=== PATIENT | female | born 1930 | race Caucasian/White ===

== ENCOUNTER 2019-02-10 20:45 | Inpatient (IN) | payer MEDICARE ==
[~2019-02-10] VITALS: Ht 149.9 cm; Wt 93.6 kg
[2019-02-10 21:37] LABS: BASO # 0.1 x10^3/uL (0.0-0.2); BASO % 1 % (0-3); EOS # 0.2 x10^3/uL (0.0-0.7); EOS % 3 % (0-3); HEMATOCRIT 38.4 % (36.0-47.0); HEMOGLOBIN 12.5 g/dL (12.0-15.5); LYMPH # 2.8 x10^3/uL (1.0-4.8); LYMPH % 29 % (24-48); MEAN CORPUSCULAR HEMOGLOBIN 29 pg (25-35); MEAN CORPUSCULAR HGB CONC 32 g/dL (31-37); MEAN CORPUSCULAR VOLUME 90 fL (79-100); MONO # 0.8 x10^3/uL (0.0-1.1); MONO % 9 % (0-9); NEUT # 5.8 x10^3uL (1.8-7.7); NEUT % 60 % (31-73); PLATELET COUNT 233 x10^3/uL (140-400); RED BLOOD COUNT 4.29 x10^6/uL (3.50-5.40); RED CELL DISTRIBUTION WIDTH 16.2 % (11.5-14.5); WHITE BLOOD COUNT 9.7 x10^3/uL (4.0-11.0)
--- NOTE | 2019-02-10 21:41 | PHYS DOC ---
Past Medical History Past Medical History: Diabetes-Type II, High Cholesterol, Heart Disease, Hypertension Past Surgical History: Coronary Bypass Surgery, Other Additional Past Surgical Histo: SHOULDER,BACK, CARPAL TUNNEL Alcohol Use: None Drug Use: None Adult General Chief Complaint Chief Complaint: RAPID HEART RATE HPI HPI Patient is a 88 year old female with a history of CAD who presents with palpitations. Patient states she's been having palpitations intermittently for the past three weeks. The palpitations usually occur with exertion. Resting seems to reliever her palpitations. In addition, she is also experiencing some exertional dyspnea and orthopnea. She denies any chest pain, light headedness, or dizziness. Review of Systems Review of Systems Constitutional: Denies fever or chills Eyes: Denies vision changes or eye pain HENT: Denies nasal congestion or sore throat Respiratory: Reports exertional shortness of breath. Denies hemoptysis. Cardiovascular: Reports palpitations, denies chest pain. GI: Denies abdominal pain, nausea, vomiting : Denies dysuria or hematuria Musculoskeletal: Reports bilateral leg swelling. Denies back pain or joint pain Integument: Denies rash or skin lesions Neurologic: Denies headache or focal weakness Complete systems were reviewed and found to be within normal limits, except as documented in this note. Current Medications Current Medications Current Medications Medications (Trade) Dose Ordered Sig/Cindi Start Time Stop Time Status Last Admin Dose Admin Aspirin (Jovanny Aspirin) 325 mg 1X ONCE 02/10/19 22:00 02/10/19 22:01 DC 02/10/19 21:41 325 MG Allergies Allergies Allergies Coded Allergies Type Severity Reaction Last Updated Verified codeine Allergy Intermediate 02/10/19 Yes Physical Exam Physical Exam Constitutional: No acute distress, non-toxic appearance. HENT: Normocephalic, atraumatic, oropharynx moist Eyes: EOMI, no discharge. Neck: Normal range of motion, no tenderness. Cardiovascular: Irregulary irregular rhythm, no murmur Lungs & Thorax: Crackles in right lung base, no wheezes Abdomen: Soft, no tenderness Skin: Warm, dry, 2+ pedal edema bilaterally. Back: No tenderness, no CVA tenderness. Extremities: No cyanosis, 2+ pedal edema bilaterally. Neurologic: Alert and oriented X 3, normal motor function, no focal deficits noted. Psychologic: Affect normal, mood normal. Current Patient Data Vital Signs Vital Signs Date Time Temp Pulse Resp B/P (MAP) Pulse Ox O2 Delivery O2 Flow Rate FiO2 02/10/19 22:12 78 154/119 (131) 95 Room Air 02/10/19 20:50 98.2 22 98.2 Lab Values Laboratory Tests Test 02/10/19 21:02 02/10/19 21:50 White Blood Count 9.7 x10^3/uL (4.0-11.0) Red Blood Count 4.29 x10^6/uL (3.50-5.40) Hemoglobin 12.5 g/dL (12.0-15.5) Hematocrit 38.4 % (36.0-47.0) Mean Corpuscular Volume 90 fL (79-100) Mean Corpuscular Hemoglobin 29 pg (25-35) Mean Corpuscular Hemoglobin Concent 32 g/dL (31-37) Red Cell Distribution Width 16.2 % (11.5-14.5) H Platelet Count 233 x10^3/uL (140-400) Neutrophils (%) (Auto) 60 % (31-73) Lymphocytes (%) (Auto) 29 % (24-48) Monocytes (%) (Auto) 9 % (0-9) Eosinophils (%) (Auto) 3 % (0-3) Basophils (%) (Auto) 1 % (0-3) Neutrophils # (Auto) 5.8 x10^3uL (1.8-7.7) Lymphocytes # (Auto) 2.8 x10^3/uL (1.0-4.8) Monocytes # (Auto) 0.8 x10^3/uL (0.0-1.1) Eosinophils # (Auto) 0.2 x10^3/uL (0.0-0.7) Basophils # (Auto) 0.1 x10^3/uL (0.0-0.2) Prothrombin Time 13.5 SEC (11.7-14.0) Prothrombin Time INR 1.1 (0.8-1.1) PTT 37 SEC (24-38) Sodium Level 140 mmol/L (136-145) Potassium Level 4.0 mmol/L (3.5-5.1) Chloride Level 105 mmol/L (98-107) Carbon Dioxide Level 25 mmol/L (21-32) Anion Gap 10 (6-14) Blood Urea Nitrogen 22 mg/dL (7-20) H Creatinine 0.8 mg/dL (0.6-1.0) Estimated GFR (Cockcroft-Gault) 67.5 BUN/Creatinine Ratio 28 (6-20) H Glucose Level 109 mg/dL (70-99) H Calcium Level 9.3 mg/dL (8.5-10.1) Magnesium Level 2.0 mg/dL (1.8-2.4) Total Bilirubin 0.3 mg/dL (0.2-1.0) Aspartate Amino Transferase (AST) 19 U/L (15-37) Alanine Aminotransferase (ALT) 26 U/L (14-59) Alkaline Phosphatase 89 U/L (46-116) Creatine Kinase 72 U/L (26-192) Creatine Kinase MB (Mass) 1.3 ng/mL (0.0-3.6) Creatine Kinase MB Relative Index % (0-4) Troponin I Quantitative < 0.017 ng/mL (0.000-0.055) LR-Ajg-O-Type Natriuretic Peptide 1462 pg/mL (0-449) H Total Protein 7.4 g/dL (6.4-8.2) Albumin 3.3 g/dL (3.4-5.0) L Albumin/Globulin Ratio 0.8 (1.0-1.7) L Lipase 101 U/L (73-393) Urine Collection Type Unknown Urine Color Yellow Urine Clarity Clear Urine pH 5.0 Urine Specific [place] 1.025 Urine Protein Negative mg/dL (NEG-TRACE) Urine Glucose (UA) Negative mg/dL (NEG) Urine Ketones (Stick) Negative mg/dL (NEG) Urine Blood Negative (NEG) Urine Nitrite Negative (NEG) Urine Bilirubin Negative (NEG) Urine Urobilinogen Dipstick 0.2 mg/dL (0.2 mg/dL) Urine Leukocyte Esterase Trace (NEG) Urine RBC Occ /HPF (0-2) Urine WBC 1-4 /HPF (0-4) Urine Squamous Epithelial Cells Few /LPF Urine Bacteria 0 /HPF (0-FEW) Urine Hyaline Casts Few /HPF Urine Mucus Mod /LPF Laboratory Tests 02/10/19 21:02 Laboratory Tests 02/10/19 21:02 EKG EKG @2100 Afib at 78bpm, NO ST elevation] Radiology/Procedures Radiology/Procedures CXR Initially read by ER physician demonstrated increased vascular congestion bilaterally concerning for CHF Course & Med Decision Making Course & Med Decision Making 88 year old female presents to the emergency department for abnormal heart beat. Patient has a history of CAD and quadruple bypass in 2008. In addition to her chest pain she also experiencing orthopnea and exertional dyspnea. On arrival patient was in a-fib with a rate in the 80s. Labs and Imaging were obtained and posted to chart. BNP was elevated. Lasix given. CXR demonstrate fluid on lungs bilaterally. Troponin negative. Symptomatic treatment provided with interval improvement. Due to new onset a-fib and concerns for new onset CHF patient would benefit from an admissions. Discussed with Dr. Linda (hospitalist) who is in agreement with admission. Findings were discussed with patient and family who acknowledge understanding and are in agreement with plan. Dragon Disclaimer Dragon Disclaimer This electronic medical record was generated, in whole or in part, using a voice recognition dictation system. Departure Departure Impression: Primary Impression: Acute CHF Additional Impression: Atrial fibrillation Disposition: ADMITTED INPATIENT Admitting Physician: Other (Dr. Linda) Condition: GUARDED Referrals: ALEX COURTNEY MD (PCP) Problem Qualifiers Primary Impression: Acute CHF Heart failure type: unspecified Qualified Codes: I50.9 - Heart failure, unspecified Additional Impression: Atrial fibrillation Atrial fibrillation type: unspecified Qualified Codes: I48.91 - Unspecified atrial fibrillation ELIZABETH ACOSTA DO Feb 10, 2019 21:41
[2019-02-10 21:46] LABS: CALCIUM 9.3 mg/dL (8.5-10.1); CREATININE 0.8 mg/dL (0.6-1.0); GFR 67.5
[2019-02-10 21:50] LABS: PROTHROMBIN TIME PATIENT 13.5 SEC (11.7-14.0)
[2019-02-10 21:52] LABS: ALBUMIN 3.3 g/dL (3.4-5.0); ALBUMIN/GLOBULIN RATIO 0.8 (1.0-1.7); TOTAL BILIRUBIN 0.3 mg/dL (0.2-1.0); TOTAL PROTEIN 7.4 g/dL (6.4-8.2)
[2019-02-10 21:59] LABS: CREATINE KINASE 72 U/L (26-192)
[2019-02-10] MEDS ORDERED: ASPIRIN 325 MG TABLET PO ONE (22:00)
[2019-02-10 22:08] LABS: BILIRUBIN,URINE NEGATIVE (NEG); CLARITY,URINE CLEAR; COLOR,URINE YELLOW; NITRITE,URINE NEGATIVE (NEG); PROTEIN,URINE NEGATIVE (NEG-TRACE); UROBILINOGEN,URINE 0.2 mg/dL (0.2 mg/dL)
[2019-02-10 22:15] LABS: BACTERIA,URINE 0 /HPF (0-FEW); HYALINE CASTS, URINE FEW /HPF; RBC,URINE OCC /HPF (0-2); SQUAMOUS EPITHELIAL CELL,UR FEW /LPF
[2019-02-10] MEDS ORDERED: DEXTROSE 50% 25 GM / 50ML DISP.SYRIN. IV PRN (23:00)
[2019-02-10] MEDS ORDERED: FUROSEMIDE 40 MG/4 ML VIAL. IVP ONE (23:00)
[2019-02-10] MEDS ORDERED: ONDANSETRON PF 4 MG/2 ML VIAL. IV PRN (23:00)
[2019-02-11] VITALS (7 sets, daily range): BP systolic 108–163; BP diastolic 42–75
[2019-02-11] MEDS ORDERED: SIMV10TA3 PO (01:39)
[2019-02-11] MEDS ORDERED: INSU100I13 SQ (02:05)
[2019-02-11] MEDS ORDERED: LISI-334 PO (02:05)
[2019-02-11] MEDS ORDERED: ASPI-630 PO (02:05)
[2019-02-11] MEDS ORDERED: INSU100I11 SQ (02:05)
[2019-02-11] MEDS ORDERED: METO25TA2 PO (02:05)
--- NOTE | 2019-02-11 02:07 | NUR ---
Patient arrived to floor at approx 0109 accompanied by family and ER nurse. VS stable, assessment complete, resting comfortably on RA. Valuables checked. Orientated patient to unit. Call light with in reach, bed in low, locked position.
--- NOTE | 2019-02-11 06:50 | EKG ---
[facility] [address] [place] [address] Test Date: 2019-02-10 Test Time: 21:00:41 Pat Name: JULIO PERKINS Department: Room: 258 1 Gender: F [employer]: : 1930 Requested By: ELIZABETH ACOSTA Order Number: [id number] Reading MD: Jassi Shannon Measurements Intervals [place] Rate: 78 P: DE: QRS: -30 QRSD: 82 T: 34 QT: 360 QTc: 414 Interpretive Statements ATRIAL FIBRILLATION/FLUTTER ABNORMAL LEFT AXIS DEVIATION ST & T ABNORMALITY, CONSIDER HIGH LATERAL ISCHEMIA OR LEFT VENTRICULAR STRAIN ABNORMAL ECG Electronically Signed On 02-17-2019 11:44:43 CDT by Jassi Shannon
[2019-02-11] MEDS: INSULIN LISPRO 300 UNITS/3 ML INSULN.PEN. SQ SCH ×5 (08:00→17:49)
--- NOTE | 2019-02-11 08:01 | RAD ---
CHEST PA LATERAL History: palpitations Comparison: None. Findings: Sternal wires and mediastinal clips are present. The cardiomediastinal silhouette is normal. Pulmonary vasculature congestion noted. Interstitial thickening of the lung chen. Linear atelectasis in the retrocardiac region. No pleural effusion or pneumothorax is seen. There is no acute bone abnormality. Manito sutures involve the right femoral head. IMPRESSION: Pulmonary vasculature congestion. Retrocardiac linear atelectasis. Cannot exclude underlying interstitial infiltrates. Electronically signed by: Clark Engel MD (02/11/2019 7:58 AM) [facility]
[2019-02-11 08:49] LABS: CALCIUM 9.5 mg/dL (8.5-10.1); CREATININE 0.9 mg/dL (0.6-1.0); POTASSIUM 3.8 mmol/L (3.5-5.1)
[2019-02-11 08:50] LABS: CHOLESTEROL/HDL RATIO 2.5
--- NOTE | 2019-02-11 09:15 | CARD ---
MR#: [id number] Date of Study: 02/11/2019 Ordering Physician: GINNY STARR, Referring Physician: CAT FLORES, Tech: Fay Tillman BARRY APPROVED REPORT EXAM: Two-dimensional and M-mode echocardiogram with Doppler and color Doppler. Other Information Quality : Technically LimitedHR: 63bpm Rhythm : OtherTechnically limited study due to body habitus. INDICATION Congestive Heart Failure 2D DIMENSIONS RVDd2.8 (2.9-3.5cm)Left Atrium(2D)4.0 (1.6-4.0cm) IVSd1.4 (0.7-1.1cm)Aortic Root(2D)2.8 (2.0-3.7cm) LVDd4.4 (3.9-5.9cm)LVOT Diameter2.0 (1.8-2.4cm) PWd1.0 (0.7-1.1cm)LVDs2.8 (2.5-4.0cm) FS (%) 37.1 %SV60.2 ml LVEF(%)67.2 (>50%) M-Mode DIMENSIONS Left Atrium(MM)3.99 (2.5-4.0cm)Aortic Root3.09 (2.2-3.7cm) Aortic Valve AoV Peak Pedro.158.3cm/sAoV VTI34.4cm AO Peak GR.10.0mmHgLVOT Peak Pedro.83.3cm/s AO Mean GR.5mmHgAVA (VMAX)1.63cm2 KATRINA (VTI)1.60cm2 Mitral Valve MV E Eaytuhvj054.8cm/sMV E Peak Gr.12mmHg MV DECEL [id number] A Ixcmpxqk210.4cm/s MV E Mean Gr.4mmHgE/A Ratio1.6 Pulmonary Valve PV Peak Uarnyszd16.5cm/s Tricuspid Valve TR P. Ircozzgq320ly/sRAP NDVBIHMZ9anRs TR Peak Gr.00njTkXQDO74ydGy LEFT VENTRICLE The left ventricle is normal size. Proximal septal thickening is noted. The left ventricular systolic function is normal and the ejection fraction is within normal range. The Ejection Fraction is 60-65% . There is grossly normal LV segmental wall motion. Septal motion suggestive of conduction defect. Tr ansmitral Doppler flow pattern is abnormal. RIGHT VENTRICLE The right ventricle is normal size. There is normal right ventricular wall thickness. The right ventr icular systolic function is normal. ATRIA The left atrium is mildly dilated. The right atrium size is normal. The interatrial septum is intact with no evidence for an atrial septal defect or patent foramen ovale as noted on 2-D or Doppler imagi ng. AORTIC VALVE The aortic valve is trileaflet. The aortic valve is moderately calcified. Doppler and Color Flow reve aled no significant aortic regurgitation. There is no significant aortic valvular stenosis. MITRAL VALVE Mitral annular calcification is moderate. There is no evidence of mitral valve prolapse. There is no mitral valve stenosis. Doppler and Color-flow revealed mild mitral regurgitation. TRICUSPID VALVE The tricuspid valve is normal in structure and function. Doppler and Color Flow revealed trace to mil d tricuspid regurgitation. There is mild pulmonary hypertension. The PA pressure was estimated at 35 mmHg. There is no tricuspid valve prolapse or vegetation. There is no tricuspid valve stenosis. PULMONIC VALVE The pulmonic valve is not well visualized. GREAT VESSELS The aortic root is normal in size. The ascending aorta is normal in size. The IVC is normal in size a nd collapses >50% with inspiration. PERICARDIAL EFFUSION There is no evidence of significant pericardial effusion. Critical Notification Critical Value: No <Conclusion> The left ventricular systolic function is normal and the ejection fraction is within normal range. Th e Ejection Fraction is 60-65%. There is grossly normal LV segmental wall motion. Septal motion suggestive of conduction defect. Signed by : Bull Whiteside, Electronically Approved : 02/11/2019 09:14:40
--- NOTE | 2019-02-11 10:23 | PDOC1 ---
History and Physical Date of Admission Date of Admission DATE: 02/11/19 TIME: 10:16 Identification/Chief Complaint Chief Complaint Palpitations and shortness of breath History of Present Illness History of Present Illness Mrs. Cruz is a pleasant elderly white female who presented with shortness of breath and palpitations She rates her symptoms at 10 out 10 Describes as agonizing Spell occurring for several days off and on She has associated anxiety She tried taking some home at that and seemed to work I discussed discussed case with ER physician appears the patient has A. fib with congestive heart failure We plan to admit the patient and consult cardiology and we will be doing a full cardiac workup including serial enzymes to EKGs echocardiogram and cardiac monitoring Past Medical History Past Medical History Past Medical History: Diabetes-Type II, High Cholesterol, Heart Disease, Hypertension Past Surgical History: Coronary Bypass Surgery, Other Additional Past Surgical Histo: SHOULDER,BACK, CARPAL TUNNEL Family History Family History CAD Social History Smoke: No ALCOHOL: none Drugs: None Current Problem List Problem List Problems Medical Problems: (1) Acute CHF Status: Acute (2) Atrial fibrillation Status: Acute Problems: (1) CHF exacerbation (2) Atrial fibrillation (3) Acute CHF (4) Weakness Current Medications Current Medications Current Medications Aspirin (Jovanny Aspirin) 325 mg 1X ONCE PO Last administered on 02/10/19at 21:41; Start 02/10/19 at 22:00; Stop 02/10/19 at 22:01; Status DC Furosemide (Lasix) 40 mg 1X ONCE IVP Last administered on 02/10/19at 23:13; Start 02/10/19 at 23:00; Stop 02/10/19 at 23:01; Status DC Ondansetron HCl (Zofran) 4 mg PRN Q8HRS PRN IV NAUSEA/VOMITING 1ST CHOICE; Start 02/10/19 at 23:00; Stop 02/11/19 at 22:59 Insulin Human Lispro (HumaLOG) 0-5 UNITS TIDWMEALS SQ ; Start 02/11/19 at 08:00 Dextrose (Dextrose 50%-Water Syringe) 12.5 gm PRN Q15MIN PRN IV SEE COMMENTS; Start 02/10/19 at 23:00 Active Scripts Active Reported Humalog (Insulin Lispro) 100 Unit/1 Ml Insuln.pen 12 Unit SQ TIDWMEALS Lantus Solostar (Insulin Glargine,Hum.rec.anlog) 100 Unit/1 Ml Insuln.pen 60 Unit SQ QHS Aspirin 81 Mg Tab.chew 81 Mg PO DAILY Toprol Xl (Metoprolol Succinate) 25 Mg Tab.er.24h 25 Mg PO DAILY Lisinopril 20 Mg Tablet 20 Mg PO DAILY PRN Simvastatin 10 Mg Tablet 10 Mg PO DAILY Allergies Allergies: Coded Allergies: codeine (Verified Allergy, Intermediate, 02/10/19) ROS Review of System REVIEW OF SYSTEMS: GENERAL: Denies weakness SKIN: No bruising, hair changes or rashes. EYES: No blurred, double or loss of vision. NOSE AND THROAT: No history of nosebleeds, hoarseness or sore throat. HEART: No history of palpitations, chest pain or shortness of breath on exertion. LUNGS: Denies cough, hemoptysis, wheezing or shortness of breath. GASTROINTESTINAL: Denies changes in appetite, nausea, vomiting, diarrhea or constipation. GENITOURINARY: No history of frequency, urgency, hesitancy or nocturia. NEUROLOGIC: Denies history of numbness, tingling, tremor or weakness. PSYCHIATRIC: No history of panic, anxiety or depression. ENDOCRINE: No history of heat or cold intolerance, polyuria or polydipsia. EXTREMITIES: Denies muscle weakness, joint pain, pain on walking or stiffness. Physical Exam General: Alert, Oriented X3 HEENT: Atraumatic, PERRLA Lungs: Clear to auscultation Heart: no murmurs, irregularly irregular Abdomen: Normal bowel sounds, Soft Rectal Exam: not examined Extremities: No clubbing, No cyanosis Skin: No rashes, No breakdown Neuro: Normal gait, Normal speech Psych/Mental Status: Mental status NL Vitals Vitals Vital Signs Date Time Temp Pulse Resp B/P (MAP) Pulse Ox O2 Delivery O2 Flow Rate FiO2 02/11/19 07:00 97.7 83 18 115/45 (68) 93 Room Air 97.7 Labs Labs Laboratory Tests Test 02/10/19 21:02 02/10/19 21:50 02/11/19 01:45 02/11/19 04:50 White Blood Count 9.7 x10^3/uL (4.0-11.0) Red Blood Count 4.29 x10^6/uL (3.50-5.40) Hemoglobin 12.5 g/dL (12.0-15.5) Hematocrit 38.4 % (36.0-47.0) Mean Corpuscular Volume 90 fL (79-100) Mean Corpuscular Hemoglobin 29 pg (25-35) Mean Corpuscular Hemoglobin Concent 32 g/dL (31-37) Red Cell Distribution Width 16.2 % (11.5-14.5) Platelet Count 233 x10^3/uL (140-400) Neutrophils (%) (Auto) 60 % (31-73) Lymphocytes (%) (Auto) 29 % (24-48) Monocytes (%) (Auto) 9 % (0-9) Eosinophils (%) (Auto) 3 % (0-3) Basophils (%) (Auto) 1 % (0-3) Neutrophils # (Auto) 5.8 x10^3uL (1.8-7.7) Lymphocytes # (Auto) 2.8 x10^3/uL (1.0-4.8) Monocytes # (Auto) 0.8 x10^3/uL (0.0-1.1) Eosinophils # (Auto) 0.2 x10^3/uL (0.0-0.7) Basophils # (Auto) 0.1 x10^3/uL (0.0-0.2) Prothrombin Time 13.5 SEC (11.7-14.0) Prothromb Time International Ratio 1.1 (0.8-1.1) Activated Partial Thromboplast Time 37 SEC (24-38) Sodium Level 140 mmol/L (136-145) 141 mmol/L (136-145) Potassium Level 4.0 mmol/L (3.5-5.1) 3.8 mmol/L (3.5-5.1) Chloride Level 105 mmol/L (98-107) 104 mmol/L (98-107) Carbon Dioxide Level 25 mmol/L (21-32) 25 mmol/L (21-32) Anion Gap 10 (6-14) 12 (6-14) Blood Urea Nitrogen 22 mg/dL (7-20) 22 mg/dL (7-20) Creatinine 0.8 mg/dL (0.6-1.0) 0.9 mg/dL (0.6-1.0) Estimated GFR (Cockcroft-Gault) 67.5 59.0 BUN/Creatinine Ratio 28 (6-20) Glucose Level 109 mg/dL (70-99) 133 mg/dL (70-99) Calcium Level 9.3 mg/dL (8.5-10.1) 9.5 mg/dL (8.5-10.1) Magnesium Level 2.0 mg/dL (1.8-2.4) Total Bilirubin 0.3 mg/dL (0.2-1.0) Aspartate Amino Transf (AST/SGOT) 19 U/L (15-37) Alanine Aminotransferase (ALT/SGPT) 26 U/L (14-59) Alkaline Phosphatase 89 U/L (46-116) Creatine Kinase 72 U/L (26-192) Creatine Kinase MB (Mass) 1.3 ng/mL (0.0-3.6) Creatine Kinase MB Relative Index % (0-4) Troponin I Quantitative < 0.017 ng/mL (0.000-0.055) < 0.017 ng/mL (0.000-0.055) 0.017 ng/mL (0.000-0.055) YP-Brf-B-Type Natriuretic Peptide 1462 pg/mL (0-449) Total Protein 7.4 g/dL (6.4-8.2) Albumin 3.3 g/dL (3.4-5.0) Albumin/Globulin Ratio 0.8 (1.0-1.7) Lipase 101 U/L (73-393) Urine Collection Type Unknown Urine Color Yellow Urine Clarity Clear Urine pH 5.0 Urine Specific [place] 1.025 Urine Protein Negative mg/dL (NEG-TRACE) Urine Glucose (UA) Negative mg/dL (NEG) Urine Ketones (Stick) Negative mg/dL (NEG) Urine Blood Negative (NEG) Urine Nitrite Negative (NEG) Urine Bilirubin Negative (NEG) Urine Urobilinogen Dipstick 0.2 mg/dL (0.2 mg/dL) Urine Leukocyte Esterase Trace (NEG) Urine RBC Occ /HPF (0-2) Urine WBC 1-4 /HPF (0-4) Urine Squamous Epithelial Cells Few /LPF Urine Bacteria 0 /HPF (0-FEW) Urine Hyaline Casts Few /HPF Urine Mucus Mod /LPF Triglycerides Level 78 mg/dL (0-150) Cholesterol Level 117 mg/dL (0-200) LDL Cholesterol, Calculated 55 mg/dL (0-100) VLDL Cholesterol, Calculated 16 mg/dL (0-40) Non-HDL Cholesterol Calculated 71 mg/dL (0-129) HDL Cholesterol 46 mg/dL (40-60) Cholesterol/HDL Ratio 2.5 Thyroid Stimulating Hormone (TSH) 9.990 uIU/mL (0.358-3.74) Test 02/11/19 07:42 Glucose (Fingerstick) 165 mg/dL (70-99) Laboratory Tests Test 02/10/19 21:02 02/10/19 21:50 02/11/19 01:45 02/11/19 04:50 White Blood Count 9.7 x10^3/uL (4.0-11.0) Red Blood Count 4.29 x10^6/uL (3.50-5.40) Hemoglobin 12.5 g/dL (12.0-15.5) Hematocrit 38.4 % (36.0-47.0) Mean Corpuscular Volume 90 fL (79-100) Mean Corpuscular Hemoglobin 29 pg (25-35) Mean Corpuscular Hemoglobin Concent 32 g/dL (31-37) Red Cell Distribution Width 16.2 % (11.5-14.5) Platelet Count 233 x10^3/uL (140-400) Neutrophils (%) (Auto) 60 % (31-73) Lymphocytes (%) (Auto) 29 % (24-48) Monocytes (%) (Auto) 9 % (0-9) Eosinophils (%) (Auto) 3 % (0-3) Basophils (%) (Auto) 1 % (0-3) Neutrophils # (Auto) 5.8 x10^3uL (1.8-7.7) Lymphocytes # (Auto) 2.8 x10^3/uL (1.0-4.8) Monocytes # (Auto) 0.8 x10^3/uL (0.0-1.1) Eosinophils # (Auto) 0.2 x10^3/uL (0.0-0.7) Basophils # (Auto) 0.1 x10^3/uL (0.0-0.2) Prothrombin Time 13.5 SEC (11.7-14.0) Prothromb Time International Ratio 1.1 (0.8-1.1) Activated Partial Thromboplast Time 37 SEC (24-38) Sodium Level 140 mmol/L (136-145) 141 mmol/L (136-145) Potassium Level 4.0 mmol/L (3.5-5.1) 3.8 mmol/L (3.5-5.1) Chloride Level 105 mmol/L (98-107) 104 mmol/L (98-107) Carbon Dioxide Level 25 mmol/L (21-32) 25 mmol/L (21-32) Anion Gap 10 (6-14) 12 (6-14) Blood Urea Nitrogen 22 mg/dL (7-20) 22 mg/dL (7-20) Creatinine 0.8 mg/dL (0.6-1.0) 0.9 mg/dL (0.6-1.0) Estimated GFR (Cockcroft-Gault) 67.5 59.0 BUN/Creatinine Ratio 28 (6-20) Glucose Level 109 mg/dL (70-99) 133 mg/dL (70-99) Calcium Level 9.3 mg/dL (8.5-10.1) 9.5 mg/dL (8.5-10.1) Magnesium Level 2.0 mg/dL (1.8-2.4) Total Bilirubin 0.3 mg/dL (0.2-1.0) Aspartate Amino Transf (AST/SGOT) 19 U/L (15-37) Alanine Aminotransferase (ALT/SGPT) 26 U/L (14-59) Alkaline Phosphatase 89 U/L (46-116) Creatine Kinase 72 U/L (26-192) Creatine Kinase MB (Mass) 1.3 ng/mL (0.0-3.6) Creatine Kinase MB Relative Index % (0-4) Troponin I Quantitative < 0.017 ng/mL (0.000-0.055) < 0.017 ng/mL (0.000-0.055) 0.017 ng/mL (0.000-0.055) KZ-Ueu-Q-Type Natriuretic Peptide 1462 pg/mL (0-449) Total Protein 7.4 g/dL (6.4-8.2) Albumin 3.3 g/dL (3.4-5.0) Albumin/Globulin Ratio 0.8 (1.0-1.7) Lipase 101 U/L (73-393) Urine Collection Type Unknown Urine Color Yellow Urine Clarity Clear Urine pH 5.0 Urine Specific [place] 1.025 Urine Protein Negative mg/dL (NEG-TRACE) Urine Glucose (UA) Negative mg/dL (NEG) Urine Ketones (Stick) Negative mg/dL (NEG) Urine Blood Negative (NEG) Urine Nitrite Negative (NEG) Urine Bilirubin Negative (NEG) Urine Urobilinogen Dipstick 0.2 mg/dL (0.2 mg/dL) Urine Leukocyte Esterase Trace (NEG) Urine RBC Occ /HPF (0-2) Urine WBC 1-4 /HPF (0-4) Urine Squamous Epithelial Cells Few /LPF Urine Bacteria 0 /HPF (0-FEW) Urine Hyaline Casts Few /HPF Urine Mucus Mod /LPF Triglycerides Level 78 mg/dL (0-150) Cholesterol Level 117 mg/dL (0-200) LDL Cholesterol, Calculated 55 mg/dL (0-100) VLDL Cholesterol, Calculated 16 mg/dL (0-40) Non-HDL Cholesterol Calculated 71 mg/dL (0-129) HDL Cholesterol 46 mg/dL (40-60) Cholesterol/HDL Ratio 2.5 Thyroid Stimulating Hormone (TSH) 9.990 uIU/mL (0.358-3.74) Test 02/11/19 07:42 Glucose (Fingerstick) 165 mg/dL (70-99) Images Images Chest x-ray shows mild vascular congestion VTE Prophylaxis Ordered VTE Prophylaxis Devices: Yes VTE Pharmacological Prophylaxi: Yes Assessment/Plan Assessment/Plan Atrial fibrillation with acute on chronic systolic and diastolic heart failure Patient is being admitted we'll consult cardiology check echocardiogram serial enzymes still EKGs consider anticoagulation if cardiology agrees cardiac monitoring home meds frequent labs I discussed case with the patient's and the nurse Therapy occupational therapy for code DVT prophylaxis Prognosis guarded Total time 31 minutes Problem Qualifiers (1) Atrial fibrillation: Atrial fibrillation type: unspecified Qualified Codes: I48.91 - Unspecified atrial fibrillation (2) Acute CHF: Heart failure type: unspecified Qualified Codes: I50.9 - Heart failure, unspecified DAKOTAH NESS III DO Feb 11, 2019 10:23
[2019-02-11] MEDS ORDERED: FUROSEMIDE 40 MG/4 ML VIAL. IVP ONE (12:45)
--- NOTE | 2019-02-11 12:47 | PDOC2 ---
GINNY STARR ROLL GRINDER OPERATOR 02/11/19 1247: CARDIAC CONSULT DATE OF CONSULT Date of Consult DATE: 02/11/19 TIME: 12:15 REASON FOR CONSULT Reason for Consult: CHF, AFIB REFERRING PHYSICIAN Referring Physician: Socorro SOURCE Source: Chart review, Patient HISTORY OF PRESENT ILLNESS HISTORY OF PRESENT ILLNESS This is a pleasant 88 yo female admitted for complains of SOA and palpitations. Reports that she has been having these symptoms in the last 2 weeks. Reports of PALOMO, intermittent palpitations. No chest pain but feeling of chest fullness at times. Reports orthopnea and sometimes cough. No past hx of arrhythmias. No complains of n/v, fever, chills, recent infection. No hx of hypothyroidism but does have hx of CAD with past CABG in [place] but no stress test nor LHC since then. She used to see Dr. Velasquez. She currently feels better and no discomfort. PAST MEDICAL HISTORY Cardiovascular: AFIB, CAD, CHF, HTN, Hyperlipidemia CENTRAL NERVOUS SYSTEM: Carpal Tunnel Syndrome Endocrine: Diabetes (2) PAST SURGICAL HISTORY Past Surgical History: Arthroscopy (left shoulder), CABG, Cataract Removal, Other (CTS relaes) FAMILY HISTORY Family History: Coronary Artery Disease (father) SOCIAL HISTORY Smoke: No ALCOHOL: none Drugs: None Lives: Alone CURRENT MEDICATIONS CURRENT MEDICATIONS Current Medications Medications (Trade) Dose Ordered Sig/Cindi Route PRN Reason Start Time Stop Time Status Last Admin Dose Admin Aspirin (Jovanny Aspirin) 325 mg 1X ONCE PO 02/10/19 22:00 02/10/19 22:01 DC 02/10/19 21:41 Furosemide (Lasix) 40 mg 1X ONCE IVP 02/10/19 23:00 02/10/19 23:01 DC 02/10/19 23:13 Insulin Human Lispro (HumaLOG) 12 units TIDWMEALS SQ 02/11/19 12:00 02/11/19 11:42 ALLERGIES ALLERGIES: Coded Allergies: codeine (Verified Allergy, Intermediate, 02/10/19) ROS Review of System 14 point ROS evaluated with pertinent positives noted per HPI PHYSICAL EXAM General: Alert, Oriented X3, Cooperative, No acute distress HEENT: Mucous membr. moist/pink Lungs: Other (basilar crackles) Heart: Other (AFIB, systolic murmur 2/6 LLS border) Abdomen: Soft, No tenderness, Other (obese) Extremities: No cyanosis, Other (trace LE edema) Skin: No breakdown, No significant lesion Neuro: Normal speech, Sensation intact Psych/Mental Status: Mental status NL, Mood NL MUSCULOSKELETAL: Osteoarthritic changes both hands VITALS VITALS Vital Signs Date Time Temp Pulse Resp B/P (MAP) Pulse Ox O2 Delivery O2 Flow Rate FiO2 02/11/19 11:00 97.8 59 18 128/66 (86) 92 Room Air 97.8 LABS Lab: Laboratory Tests Test 02/10/19 21:02 02/10/19 21:50 02/11/19 01:45 02/11/19 04:50 White Blood Count 9.7 x10^3/uL (4.0-11.0) Red Blood Count 4.29 x10^6/uL (3.50-5.40) Hemoglobin 12.5 g/dL (12.0-15.5) Hematocrit 38.4 % (36.0-47.0) Mean Corpuscular Volume 90 fL (79-100) Mean Corpuscular Hemoglobin 29 pg (25-35) Mean Corpuscular Hemoglobin Concent 32 g/dL (31-37) Red Cell Distribution Width 16.2 % (11.5-14.5) Platelet Count 233 x10^3/uL (140-400) Neutrophils (%) (Auto) 60 % (31-73) Lymphocytes (%) (Auto) 29 % (24-48) Monocytes (%) (Auto) 9 % (0-9) Eosinophils (%) (Auto) 3 % (0-3) Basophils (%) (Auto) 1 % (0-3) Neutrophils # (Auto) 5.8 x10^3uL (1.8-7.7) Lymphocytes # (Auto) 2.8 x10^3/uL (1.0-4.8) Monocytes # (Auto) 0.8 x10^3/uL (0.0-1.1) Eosinophils # (Auto) 0.2 x10^3/uL (0.0-0.7) Basophils # (Auto) 0.1 x10^3/uL (0.0-0.2) Prothrombin Time 13.5 SEC (11.7-14.0) Prothromb Time International Ratio 1.1 (0.8-1.1) Activated Partial Thromboplast Time 37 SEC (24-38) Sodium Level 140 mmol/L (136-145) 141 mmol/L (136-145) Potassium Level 4.0 mmol/L (3.5-5.1) 3.8 mmol/L (3.5-5.1) Chloride Level 105 mmol/L (98-107) 104 mmol/L (98-107) Carbon Dioxide Level 25 mmol/L (21-32) 25 mmol/L (21-32) Anion Gap 10 (6-14) 12 (6-14) Blood Urea Nitrogen 22 mg/dL (7-20) 22 mg/dL (7-20) Creatinine 0.8 mg/dL (0.6-1.0) 0.9 mg/dL (0.6-1.0) Estimated GFR (Cockcroft-Gault) 67.5 59.0 BUN/Creatinine Ratio 28 (6-20) Glucose Level 109 mg/dL (70-99) 133 mg/dL (70-99) Calcium Level 9.3 mg/dL (8.5-10.1) 9.5 mg/dL (8.5-10.1) Magnesium Level 2.0 mg/dL (1.8-2.4) Total Bilirubin 0.3 mg/dL (0.2-1.0) Aspartate Amino Transf (AST/SGOT) 19 U/L (15-37) Alanine Aminotransferase (ALT/SGPT) 26 U/L (14-59) Alkaline Phosphatase 89 U/L (46-116) Creatine Kinase 72 U/L (26-192) Creatine Kinase MB (Mass) 1.3 ng/mL (0.0-3.6) Creatine Kinase MB Relative Index % (0-4) Troponin I Quantitative < 0.017 ng/mL (0.000-0.055) < 0.017 ng/mL (0.000-0.055) 0.017 ng/mL (0.000-0.055) DB-Dls-Q-Type Natriuretic Peptide 1462 pg/mL (0-449) Total Protein 7.4 g/dL (6.4-8.2) Albumin 3.3 g/dL (3.4-5.0) Albumin/Globulin Ratio 0.8 (1.0-1.7) Lipase 101 U/L (73-393) Urine Collection Type Unknown Urine Color Yellow Urine Clarity Clear Urine pH 5.0 Urine Specific [place] 1.025 Urine Protein Negative mg/dL (NEG-TRACE) Urine Glucose (UA) Negative mg/dL (NEG) Urine Ketones (Stick) Negative mg/dL (NEG) Urine Blood Negative (NEG) Urine Nitrite Negative (NEG) Urine Bilirubin Negative (NEG) Urine Urobilinogen Dipstick 0.2 mg/dL (0.2 mg/dL) Urine Leukocyte Esterase Trace (NEG) Urine RBC Occ /HPF (0-2) Urine WBC 1-4 /HPF (0-4) Urine Squamous Epithelial Cells Few /LPF Urine Bacteria 0 /HPF (0-FEW) Urine Hyaline Casts Few /HPF Urine Mucus Mod /LPF Triglycerides Level 78 mg/dL (0-150) Cholesterol Level 117 mg/dL (0-200) LDL Cholesterol, Calculated 55 mg/dL (0-100) VLDL Cholesterol, Calculated 16 mg/dL (0-40) Non-HDL Cholesterol Calculated 71 mg/dL (0-129) HDL Cholesterol 46 mg/dL (40-60) Cholesterol/HDL Ratio 2.5 Thyroid Stimulating Hormone (TSH) 9.990 uIU/mL (0.358-3.74) Test 02/11/19 07:42 02/11/19 11:23 Glucose (Fingerstick) 165 mg/dL (70-99) 136 mg/dL (70-99) ECHOCARDIOGRAM ECHOCARDIOGRAM <Conclusion> The left ventricular systolic function is normal and the ejection fraction is within normal range. The Ejection Fraction is 60-65%. There is grossly normal LV segmental wall motion. Septal motion suggestive of conduction defect. DATE: 02/11/19913 ASSESSMENT/PLAN ASSESSMENT/PLAN 1. Acute on chronic diastolic CHF: now compensated 2. CAD; past CABG 2008 3. AFIB: new finding potentially RVR episodes in relation to her palpitations episodes. currently rate controlled 4. Hypothyroidism: new. likely contributing culprit of above coexisting conditions 5. HTN; controlled 6. DM2/HLP: insulin dependent 7. Morbid obesity with GAYLE and noncompliant with CPAP Recommendations 1. Start on eliquis for stroke prevention. Discussed risks and benefits with pt and daughter and agreeable. 2. Continue with secondary prevention. statin , baby ASA. toprol and lisinopril. 3. Lasix x1 IV. 4. Replacement thyroid therpay per PCP 5. Encouraged use of CPAP 6. Will need outpt stress test. MCOT. 7. Once hypothyroidism med is optimized then will consider for outpt CVN. CARLEY SHANNON MD 02/11/19 3744: CARDIAC CONSULT ASSESSMENT/PLAN ASSESSMENT/PLAN Pt. seen and examined. Agree with above Client Relationship Consultant note. New onset afib. Agree with anticoagulation for the short term and based on burden and patient preference can consider continued medical therapy versus cardioversion. Supportive care. GINNY STARR ROLL GRINDER OPERATOR Feb 11, 2019 12:47 CARLEY SHANNON MD Feb 11, 2019 22:16
--- NOTE | 2019-02-11 12:53 | NUR ---
SS following for discharge planning. SS reviewed pt chart. Pt is from home and is currently on room air. PT/OT ordered. SS will await PT/OT evaluations and recommendations and will proceed accordingly.
[2019-02-11] MEDS ORDERED: ANTI-COAG MONITOR BY PHARMACY. MC PRN (13:00)
[2019-02-11] MEDS: METOPROLOL SUCC 24HR ER 25 MG TAB.ER.24H. PO SCH (13:12)
[2019-02-11] MEDS: ASPIRIN CHEWABLE 81 MG TABLET. PO SCH (13:12)
[2019-02-11] MEDS: LISINOPRIL 20 MG TABLET PO SCH (13:13)
[2019-02-11] MEDS: APIXABAN 5 MG TABLET. PO SCH ×2 (13:26→21:02)
--- NOTE | 2019-02-11 15:37 | PDOC ---
PULMONARY PROGRESS NOTES Vitals Vital Signs Date Time Temp Pulse Resp B/P (MAP) Pulse Ox O2 Delivery O2 Flow Rate FiO2 02/11/19 15:00 98.0 53 18 130/46 (74) 100 Room Air 98.0 Labs Laboratory Tests Test 02/10/19 21:02 02/10/19 21:50 02/11/19 01:45 02/11/19 04:50 White Blood Count 9.7 x10^3/uL (4.0-11.0) Red Blood Count 4.29 x10^6/uL (3.50-5.40) Hemoglobin 12.5 g/dL (12.0-15.5) Hematocrit 38.4 % (36.0-47.0) Mean Corpuscular Volume 90 fL (79-100) Mean Corpuscular Hemoglobin 29 pg (25-35) Mean Corpuscular Hemoglobin Concent 32 g/dL (31-37) Red Cell Distribution Width 16.2 % (11.5-14.5) Platelet Count 233 x10^3/uL (140-400) Neutrophils (%) (Auto) 60 % (31-73) Lymphocytes (%) (Auto) 29 % (24-48) Monocytes (%) (Auto) 9 % (0-9) Eosinophils (%) (Auto) 3 % (0-3) Basophils (%) (Auto) 1 % (0-3) Neutrophils # (Auto) 5.8 x10^3uL (1.8-7.7) Lymphocytes # (Auto) 2.8 x10^3/uL (1.0-4.8) Monocytes # (Auto) 0.8 x10^3/uL (0.0-1.1) Eosinophils # (Auto) 0.2 x10^3/uL (0.0-0.7) Basophils # (Auto) 0.1 x10^3/uL (0.0-0.2) Prothrombin Time 13.5 SEC (11.7-14.0) Prothromb Time International Ratio 1.1 (0.8-1.1) Activated Partial Thromboplast Time 37 SEC (24-38) Sodium Level 140 mmol/L (136-145) 141 mmol/L (136-145) Potassium Level 4.0 mmol/L (3.5-5.1) 3.8 mmol/L (3.5-5.1) Chloride Level 105 mmol/L (98-107) 104 mmol/L (98-107) Carbon Dioxide Level 25 mmol/L (21-32) 25 mmol/L (21-32) Anion Gap 10 (6-14) 12 (6-14) Blood Urea Nitrogen 22 mg/dL (7-20) 22 mg/dL (7-20) Creatinine 0.8 mg/dL (0.6-1.0) 0.9 mg/dL (0.6-1.0) Estimated GFR (Cockcroft-Gault) 67.5 59.0 BUN/Creatinine Ratio 28 (6-20) Glucose Level 109 mg/dL (70-99) 133 mg/dL (70-99) Calcium Level 9.3 mg/dL (8.5-10.1) 9.5 mg/dL (8.5-10.1) Magnesium Level 2.0 mg/dL (1.8-2.4) Total Bilirubin 0.3 mg/dL (0.2-1.0) Aspartate Amino Transf (AST/SGOT) 19 U/L (15-37) Alanine Aminotransferase (ALT/SGPT) 26 U/L (14-59) Alkaline Phosphatase 89 U/L (46-116) Creatine Kinase 72 U/L (26-192) Creatine Kinase MB (Mass) 1.3 ng/mL (0.0-3.6) Creatine Kinase MB Relative Index % (0-4) Troponin I Quantitative < 0.017 ng/mL (0.000-0.055) < 0.017 ng/mL (0.000-0.055) 0.017 ng/mL (0.000-0.055) HY-Ieg-C-Type Natriuretic Peptide 1462 pg/mL (0-449) Total Protein 7.4 g/dL (6.4-8.2) Albumin 3.3 g/dL (3.4-5.0) Albumin/Globulin Ratio 0.8 (1.0-1.7) Lipase 101 U/L (73-393) Urine Collection Type Unknown Urine Color Yellow Urine Clarity Clear Urine pH 5.0 Urine Specific [place] 1.025 Urine Protein Negative mg/dL (NEG-TRACE) Urine Glucose (UA) Negative mg/dL (NEG) Urine Ketones (Stick) Negative mg/dL (NEG) Urine Blood Negative (NEG) Urine Nitrite Negative (NEG) Urine Bilirubin Negative (NEG) Urine Urobilinogen Dipstick 0.2 mg/dL (0.2 mg/dL) Urine Leukocyte Esterase Trace (NEG) Urine RBC Occ /HPF (0-2) Urine WBC 1-4 /HPF (0-4) Urine Squamous Epithelial Cells Few /LPF Urine Bacteria 0 /HPF (0-FEW) Urine Hyaline Casts Few /HPF Urine Mucus Mod /LPF Triglycerides Level 78 mg/dL (0-150) Cholesterol Level 117 mg/dL (0-200) LDL Cholesterol, Calculated 55 mg/dL (0-100) VLDL Cholesterol, Calculated 16 mg/dL (0-40) Non-HDL Cholesterol Calculated 71 mg/dL (0-129) HDL Cholesterol 46 mg/dL (40-60) Cholesterol/HDL Ratio 2.5 Thyroid Stimulating Hormone (TSH) 9.990 uIU/mL (0.358-3.74) Test 02/11/19 07:42 02/11/19 11:23 Glucose (Fingerstick) 165 mg/dL (70-99) 136 mg/dL (70-99) Laboratory Tests Test 02/10/19 21:02 02/10/19 21:50 02/11/19 01:45 02/11/19 04:50 White Blood Count 9.7 x10^3/uL (4.0-11.0) Red Blood Count 4.29 x10^6/uL (3.50-5.40) Hemoglobin 12.5 g/dL (12.0-15.5) Hematocrit 38.4 % (36.0-47.0) Mean Corpuscular Volume 90 fL (79-100) Mean Corpuscular Hemoglobin 29 pg (25-35) Mean Corpuscular Hemoglobin Concent 32 g/dL (31-37) Red Cell Distribution Width 16.2 % (11.5-14.5) Platelet Count 233 x10^3/uL (140-400) Neutrophils (%) (Auto) 60 % (31-73) Lymphocytes (%) (Auto) 29 % (24-48) Monocytes (%) (Auto) 9 % (0-9) Eosinophils (%) (Auto) 3 % (0-3) Basophils (%) (Auto) 1 % (0-3) Neutrophils # (Auto) 5.8 x10^3uL (1.8-7.7) Lymphocytes # (Auto) 2.8 x10^3/uL (1.0-4.8) Monocytes # (Auto) 0.8 x10^3/uL (0.0-1.1) Eosinophils # (Auto) 0.2 x10^3/uL (0.0-0.7) Basophils # (Auto) 0.1 x10^3/uL (0.0-0.2) Prothrombin Time 13.5 SEC (11.7-14.0) Prothromb Time International Ratio 1.1 (0.8-1.1) Activated Partial Thromboplast Time 37 SEC (24-38) Sodium Level 140 mmol/L (136-145) 141 mmol/L (136-145) Potassium Level 4.0 mmol/L (3.5-5.1) 3.8 mmol/L (3.5-5.1) Chloride Level 105 mmol/L (98-107) 104 mmol/L (98-107) Carbon Dioxide Level 25 mmol/L (21-32) 25 mmol/L (21-32) Anion Gap 10 (6-14) 12 (6-14) Blood Urea Nitrogen 22 mg/dL (7-20) 22 mg/dL (7-20) Creatinine 0.8 mg/dL (0.6-1.0) 0.9 mg/dL (0.6-1.0) Estimated GFR (Cockcroft-Gault) 67.5 59.0 BUN/Creatinine Ratio 28 (6-20) Glucose Level 109 mg/dL (70-99) 133 mg/dL (70-99) Calcium Level 9.3 mg/dL (8.5-10.1) 9.5 mg/dL (8.5-10.1) Magnesium Level 2.0 mg/dL (1.8-2.4) Total Bilirubin 0.3 mg/dL (0.2-1.0) Aspartate Amino Transf (AST/SGOT) 19 U/L (15-37) Alanine Aminotransferase (ALT/SGPT) 26 U/L (14-59) Alkaline Phosphatase 89 U/L (46-116) Creatine Kinase 72 U/L (26-192) Creatine Kinase MB (Mass) 1.3 ng/mL (0.0-3.6) Creatine Kinase MB Relative Index % (0-4) Troponin I Quantitative < 0.017 ng/mL (0.000-0.055) < 0.017 ng/mL (0.000-0.055) 0.017 ng/mL (0.000-0.055) JH-Ehk-T-Type Natriuretic Peptide 1462 pg/mL (0-449) Total Protein 7.4 g/dL (6.4-8.2) Albumin 3.3 g/dL (3.4-5.0) Albumin/Globulin Ratio 0.8 (1.0-1.7) Lipase 101 U/L (73-393) Urine Collection Type Unknown Urine Color Yellow Urine Clarity Clear Urine pH 5.0 Urine Specific [place] 1.025 Urine Protein Negative mg/dL (NEG-TRACE) Urine Glucose (UA) Negative mg/dL (NEG) Urine Ketones (Stick) Negative mg/dL (NEG) Urine Blood Negative (NEG) Urine Nitrite Negative (NEG) Urine Bilirubin Negative (NEG) Urine Urobilinogen Dipstick 0.2 mg/dL (0.2 mg/dL) Urine Leukocyte Esterase Trace (NEG) Urine RBC Occ /HPF (0-2) Urine WBC 1-4 /HPF (0-4) Urine Squamous Epithelial Cells Few /LPF Urine Bacteria 0 /HPF (0-FEW) Urine Hyaline Casts Few /HPF Urine Mucus Mod /LPF Triglycerides Level 78 mg/dL (0-150) Cholesterol Level 117 mg/dL (0-200) LDL Cholesterol, Calculated 55 mg/dL (0-100) VLDL Cholesterol, Calculated 16 mg/dL (0-40) Non-HDL Cholesterol Calculated 71 mg/dL (0-129) HDL Cholesterol 46 mg/dL (40-60) Cholesterol/HDL Ratio 2.5 Thyroid Stimulating Hormone (TSH) 9.990 uIU/mL (0.358-3.74) Test 02/11/19 07:42 02/11/19 11:23 Glucose (Fingerstick) 165 mg/dL (70-99) 136 mg/dL (70-99) Medications Active Scripts Medications Dose Route/Sig Max Daily Dose Days Date Category Humalog (Insulin Lispro) 100 Unit/1 Ml Insuln.pen 12 Unit SQ TIDWMEALS 02/11/19 Reported Lantus Solostar (Insulin Glargine,Hum.rec.anlog) 100 Unit/1 Ml Insuln.pen 60 Unit SQ QHS 02/11/19 Reported Aspirin 81 Mg Tab.chew 81 Mg PO DAILY 02/11/19 Reported Toprol Xl (Metoprolol Succinate) 25 Mg Tab.er.24h 25 Mg PO DAILY 02/11/19 Reported Lisinopril 20 Mg Tablet 20 Mg PO DAILY PRN 02/11/19 Reported Simvastatin 10 Mg Tablet 10 Mg PO DAILY 02/11/19 Reported Impression . note dictated agree with a/c diastolic hf if no improvement will get ct chest no clinical sign of pneumonia YARELIS SHANKS MD Feb 11, 2019 15:37
[2019-02-11] MEDS ORDERED: INSULIN GLARGINE 300 UNITS/3 ML INSULN.PEN. SQ SCH (21:00)
[2019-02-11] MEDS ORDERED: SIMVASTATIN 10 MG TABLET PO SCH (21:00)
--- NOTE | 2019-02-12 01:28 | CONS ---
DATE OF CONSULTATION: 02/11/2019 ATTENDING PHYSICIAN: Dr. Zamudio. REASON FOR CONSULTATION: The patient seen in pulmonary consultation at the request of Dr. Zamudio for shortness of air, abnormal x-ray. HISTORY OF PRESENT ILLNESS: The patient is an 88-year-old that presents with increasing shortness of air over the last 2-3 days. No signs of infection, fever, chills, nausea, vomiting were denied. She had a chest x-ray, which revealed evidence of pulmonary edema, possible interstitial lung disease. She does not take a diuretic at home. She has had a previous echocardiogram revealing ejection fraction of 60%. She normally does not wear oxygen. She is currently on 2 liters of oxygen supplementation. She has been seen by Cardiology. It was felt that this was acute on chronic diastolic heart failure. She had previous coronary artery disease with coronary artery bypass grafting in the past. She also presented with atrial fibrillation with rapid ventricular response and hypertension. She was treated with Eliquis, Lasix. PAST MEDICAL HISTORY: Coronary artery disease status post coronary bypass grafting, chronic diastolic heart failure, hyperlipidemia, hypertension, type 2 diabetes. PAST SURGICAL HISTORY: Status post coronary artery bypass grafting, carpal tunnel release, previous shoulder and back surgeries. REVIEW OF SYSTEMS: CONSTITUTIONAL: No fever or chills. EYES: No change in visual acuity. HENT: No nasal congestion or sore throat. PULMONARY: As indicated above. CARDIOVASCULAR: No chest pain or pressure. GASTROINTESTINAL: No nausea, vomiting, diarrhea. GENITOURINARY: No dysuria or frequency. MUSCULOSKELETAL: Some lower extremity edema. SKIN: No new skin rashes. NEUROLOGIC: No headaches. ALLERGIES: CODEINE. MEDICATIONS: List was reviewed. Home medication list was likewise reviewed. I could not identify any medication that would contribute to interstitial lung disease or acute lung injury. PHYSICAL EXAMINATION: GENERAL: The patient morbid obese individual body mass index of 43. VITAL SIGNS: Currently on room air saturation 92% to 93%. HEENT: Eyes, the sclerae were nonicteric. NECK: Jugular venous distention was not elevated. No lymphadenopathy. CHEST: Full expansion. LUNGS: Crackles bilaterally clear. No wheezes. CARDIOVASCULAR: Regular rate and rhythm with S1, S2, no S3. ABDOMEN: Soft, nontender and nondistended. EXTREMITIES: No clubbing, cyanosis, some edema. NEUROLOGIC: The patient was awake, alert, following commands. A detailed neuro exam was not performed. LABORATORY DATA: Reviewed. Electrolytes were noted. BUN was elevated, creatinine was elevated. TSH was markedly elevated, white count was normal. IMPRESSION: 1. Acute on chronic diastolic heart failure. 2. Abnormal x-ray compatible with the above heart failure. 3. Possible mild interstitial lung disease. 4. Severe hypothyroidism. 5. New atrial fibrillation with rapid ventricular response. 6. Obstructive sleep apnea. The patient intolerant to CPAP. PLAN: 1. Continue to diurese, we will monitor x-ray. If no improvement, we will obtain CT chest. 2. Replace thyroid. 3. Follow Cardiology input. 4. Weight reduction. I do appreciate the privilege in sharing in the patient's care. YARELIS SHANKS MD DR: BARTOLO/talha JOB#: [id number] / [id number]
[2019-02-12 02:16] VITALS: BP 120/41
[2019-02-12 05:56] LABS: BASO # 0.1 x10^3/uL (0.0-0.2); BASO % 1 % (0-3); EOS # 0.2 x10^3/uL (0.0-0.7); EOS % 3 % (0-3); HEMATOCRIT 38.4 % (36.0-47.0); LYMPH # 2.4 x10^3/uL (1.0-4.8); LYMPH % 25 % (24-48); MEAN CORPUSCULAR HEMOGLOBIN 30 pg (25-35); MEAN CORPUSCULAR HGB CONC 34 g/dL (31-37); MEAN CORPUSCULAR VOLUME 90 fL (79-100); MONO # 0.8 x10^3/uL (0.0-1.1); MONO % 9 % (0-9); NEUT # 5.9 x10^3uL (1.8-7.7); NEUT % 63 % (31-73); PLATELET COUNT 248 x10^3/uL (140-400); RED BLOOD COUNT 4.29 x10^6/uL (3.50-5.40); RED CELL DISTRIBUTION WIDTH 15.9 % (11.5-14.5); WHITE BLOOD COUNT 9.4 x10^3/uL (4.0-11.0)
[2019-02-12 06:14] LABS: CALCIUM 9.1 mg/dL (8.5-10.1); CREATININE 1.1 mg/dL (0.6-1.0); GFR 46.8; POTASSIUM 3.5 mmol/L (3.5-5.1)
[2019-02-12 07:00] VITALS: BP 129/66
[2019-02-12] MEDS: INSULIN LISPRO 300 UNITS/3 ML INSULN.PEN. SQ SCH ×6 (07:53→17:02)
[2019-02-12] MEDS: METOPROLOL SUCC 24HR ER 25 MG TAB.ER.24H. PO SCH (08:17)
[2019-02-12] MEDS: LISINOPRIL 20 MG TABLET PO SCH (08:18)
[2019-02-12] MEDS: ASPIRIN CHEWABLE 81 MG TABLET. PO SCH (08:18)
[2019-02-12] MEDS: APIXABAN 5 MG TABLET. PO SCH (08:18)
[2019-02-12] MEDS ORDERED: DEXTROSE 50% 25 GM / 50ML DISP.SYRIN. IV PRN (08:30)
[2019-02-12] MEDS ORDERED: ACETAMINOPHEN 500 MG TABLET PO PRN (08:30)
[2019-02-12] MEDS ORDERED: ONDANSETRON PF 4 MG/2 ML VIAL. IV PRN (08:30)
--- NOTE | 2019-02-12 09:50 | PDOC ---
PROGRESS NOTES Chief Complaint Chief Complaint New onset A. fib/A flutter GAYLE Good systolic function-EF 60% Mild ILD Hypothyroidism with a TSH 9 IBS-diarrhea predominant Obesity BMI 42 History of Present Illness History of Present Illness Denies chest pain but she still is in A. fib anywhere between 90s to 1 teens in rate No increase in SOA She asks for Imodium-she chronically has diarrhea once every couple days and Imodium seems to help TSH is 9. Plan: I did start a low-dose Synthroid 50 mics-did not go higher than that because of new onset A. fib and elderly Needs more rate control Wait for cardiology Rounds Appreciate pulmonary PT OT Imodium every 2 when necessary Discussed with RN Vitals Vitals Vital Signs Date Time Temp Pulse Resp B/P (MAP) Pulse Ox O2 Delivery O2 Flow Rate FiO2 02/12/19 08:18 113 129/66 02/12/19 08:00 Room Air 02/12/19 07:00 97.8 18 95 97.8 Physical Exam General: Alert, Oriented X3, Cooperative, No acute distress Heart: Other (AFIB, systolic murmur 2/6 LLS border; irregularly irregular) Lungs: Other (decreased breath sounds, poor effort but no wheezing) Abdomen: Normal bowel sounds, Soft, No tenderness, Other (obese) Extremities: No cyanosis, Other (trace LE edema) Skin: No breakdown, No significant lesion Labs LABS Laboratory Tests Test 02/11/19 11:23 02/11/19 16:55 02/11/19 20:57 02/12/19 05:15 Glucose (Fingerstick) 136 mg/dL (70-99) 147 mg/dL (70-99) 137 mg/dL (70-99) White Blood Count 9.4 x10^3/uL (4.0-11.0) Red Blood Count 4.29 x10^6/uL (3.50-5.40) Hemoglobin 13.0 g/dL (12.0-15.5) Hematocrit 38.4 % (36.0-47.0) Mean Corpuscular Volume 90 fL (79-100) Mean Corpuscular Hemoglobin 30 pg (25-35) Mean Corpuscular Hemoglobin Concent 34 g/dL (31-37) Red Cell Distribution Width 15.9 % (11.5-14.5) Platelet Count 248 x10^3/uL (140-400) Neutrophils (%) (Auto) 63 % (31-73) Lymphocytes (%) (Auto) 25 % (24-48) Monocytes (%) (Auto) 9 % (0-9) Eosinophils (%) (Auto) 3 % (0-3) Basophils (%) (Auto) 1 % (0-3) Neutrophils # (Auto) 5.9 x10^3uL (1.8-7.7) Lymphocytes # (Auto) 2.4 x10^3/uL (1.0-4.8) Monocytes # (Auto) 0.8 x10^3/uL (0.0-1.1) Eosinophils # (Auto) 0.2 x10^3/uL (0.0-0.7) Basophils # (Auto) 0.1 x10^3/uL (0.0-0.2) Sodium Level 142 mmol/L (136-145) Potassium Level 3.5 mmol/L (3.5-5.1) Chloride Level 103 mmol/L (98-107) Carbon Dioxide Level 28 mmol/L (21-32) Anion Gap 11 (6-14) Blood Urea Nitrogen 27 mg/dL (7-20) Creatinine 1.1 mg/dL (0.6-1.0) Estimated GFR (Cockcroft-Gault) 46.8 Glucose Level 99 mg/dL (70-99) Calcium Level 9.1 mg/dL (8.5-10.1) Test 02/12/19 07:32 Glucose (Fingerstick) 106 mg/dL (70-99) Review of Systems Review of Systems Diarrhea otherwise the rest of ROS 14 point negative Assessment and Plan Assessmemt and Plan Problems Medical Problems: (1) Acute CHF Status: Acute (2) Atrial fibrillation Status: Acute Comment Review of Relevant I have reviewed the following items brandon (where applicable) has been applied. Labs Laboratory Tests Test 02/10/19 21:02 02/10/19 21:50 02/11/19 01:45 02/11/19 04:50 White Blood Count 9.7 x10^3/uL (4.0-11.0) Red Blood Count 4.29 x10^6/uL (3.50-5.40) Hemoglobin 12.5 g/dL (12.0-15.5) Hematocrit 38.4 % (36.0-47.0) Mean Corpuscular Volume 90 fL (79-100) Mean Corpuscular Hemoglobin 29 pg (25-35) Mean Corpuscular Hemoglobin Concent 32 g/dL (31-37) Red Cell Distribution Width 16.2 % (11.5-14.5) Platelet Count 233 x10^3/uL (140-400) Neutrophils (%) (Auto) 60 % (31-73) Lymphocytes (%) (Auto) 29 % (24-48) Monocytes (%) (Auto) 9 % (0-9) Eosinophils (%) (Auto) 3 % (0-3) Basophils (%) (Auto) 1 % (0-3) Neutrophils # (Auto) 5.8 x10^3uL (1.8-7.7) Lymphocytes # (Auto) 2.8 x10^3/uL (1.0-4.8) Monocytes # (Auto) 0.8 x10^3/uL (0.0-1.1) Eosinophils # (Auto) 0.2 x10^3/uL (0.0-0.7) Basophils # (Auto) 0.1 x10^3/uL (0.0-0.2) Prothrombin Time 13.5 SEC (11.7-14.0) Prothromb Time International Ratio 1.1 (0.8-1.1) Activated Partial Thromboplast Time 37 SEC (24-38) Sodium Level 140 mmol/L (136-145) 141 mmol/L (136-145) Potassium Level 4.0 mmol/L (3.5-5.1) 3.8 mmol/L (3.5-5.1) Chloride Level 105 mmol/L (98-107) 104 mmol/L (98-107) Carbon Dioxide Level 25 mmol/L (21-32) 25 mmol/L (21-32) Anion Gap 10 (6-14) 12 (6-14) Blood Urea Nitrogen 22 mg/dL (7-20) 22 mg/dL (7-20) Creatinine 0.8 mg/dL (0.6-1.0) 0.9 mg/dL (0.6-1.0) Estimated GFR (Cockcroft-Gault) 67.5 59.0 BUN/Creatinine Ratio 28 (6-20) Glucose Level 109 mg/dL (70-99) 133 mg/dL (70-99) Calcium Level 9.3 mg/dL (8.5-10.1) 9.5 mg/dL (8.5-10.1) Magnesium Level 2.0 mg/dL (1.8-2.4) Total Bilirubin 0.3 mg/dL (0.2-1.0) Aspartate Amino Transf (AST/SGOT) 19 U/L (15-37) Alanine Aminotransferase (ALT/SGPT) 26 U/L (14-59) Alkaline Phosphatase 89 U/L (46-116) Creatine Kinase 72 U/L (26-192) Creatine Kinase MB (Mass) 1.3 ng/mL (0.0-3.6) Creatine Kinase MB Relative Index % (0-4) Troponin I Quantitative < 0.017 ng/mL (0.000-0.055) < 0.017 ng/mL (0.000-0.055) 0.017 ng/mL (0.000-0.055) AI-Mbf-X-Type Natriuretic Peptide 1462 pg/mL (0-449) Total Protein 7.4 g/dL (6.4-8.2) Albumin 3.3 g/dL (3.4-5.0) Albumin/Globulin Ratio 0.8 (1.0-1.7) Lipase 101 U/L (73-393) Urine Collection Type Unknown Urine Color Yellow Urine Clarity Clear Urine pH 5.0 Urine Specific [place] 1.025 Urine Protein Negative mg/dL (NEG-TRACE) Urine Glucose (UA) Negative mg/dL (NEG) Urine Ketones (Stick) Negative mg/dL (NEG) Urine Blood Negative (NEG) Urine Nitrite Negative (NEG) Urine Bilirubin Negative (NEG) Urine Urobilinogen Dipstick 0.2 mg/dL (0.2 mg/dL) Urine Leukocyte Esterase Trace (NEG) Urine RBC Occ /HPF (0-2) Urine WBC 1-4 /HPF (0-4) Urine Squamous Epithelial Cells Few /LPF Urine Bacteria 0 /HPF (0-FEW) Urine Hyaline Casts Few /HPF Urine Mucus Mod /LPF Triglycerides Level 78 mg/dL (0-150) Cholesterol Level 117 mg/dL (0-200) LDL Cholesterol, Calculated 55 mg/dL (0-100) VLDL Cholesterol, Calculated 16 mg/dL (0-40) Non-HDL Cholesterol Calculated 71 mg/dL (0-129) HDL Cholesterol 46 mg/dL (40-60) Cholesterol/HDL Ratio 2.5 Thyroid Stimulating Hormone (TSH) 9.990 uIU/mL (0.358-3.74) Test 02/11/19 07:42 02/11/19 11:23 02/11/19 16:55 02/11/19 20:57 Glucose (Fingerstick) 165 mg/dL (70-99) 136 mg/dL (70-99) 147 mg/dL (70-99) 137 mg/dL (70-99) Test 02/12/19 05:15 02/12/19 07:32 White Blood Count 9.4 x10^3/uL (4.0-11.0) Red Blood Count 4.29 x10^6/uL (3.50-5.40) Hemoglobin 13.0 g/dL (12.0-15.5) Hematocrit 38.4 % (36.0-47.0) Mean Corpuscular Volume 90 fL (79-100) Mean Corpuscular Hemoglobin 30 pg (25-35) Mean Corpuscular Hemoglobin Concent 34 g/dL (31-37) Red Cell Distribution Width 15.9 % (11.5-14.5) Platelet Count 248 x10^3/uL (140-400) Neutrophils (%) (Auto) 63 % (31-73) Lymphocytes (%) (Auto) 25 % (24-48) Monocytes (%) (Auto) 9 % (0-9) Eosinophils (%) (Auto) 3 % (0-3) Basophils (%) (Auto) 1 % (0-3) Neutrophils # (Auto) 5.9 x10^3uL (1.8-7.7) Lymphocytes # (Auto) 2.4 x10^3/uL (1.0-4.8) Monocytes # (Auto) 0.8 x10^3/uL (0.0-1.1) Eosinophils # (Auto) 0.2 x10^3/uL (0.0-0.7) Basophils # (Auto) 0.1 x10^3/uL (0.0-0.2) Sodium Level 142 mmol/L (136-145) Potassium Level 3.5 mmol/L (3.5-5.1) Chloride Level 103 mmol/L (98-107) Carbon Dioxide Level 28 mmol/L (21-32) Anion Gap 11 (6-14) Blood Urea Nitrogen 27 mg/dL (7-20) Creatinine 1.1 mg/dL (0.6-1.0) Estimated GFR (Cockcroft-Gault) 46.8 Glucose Level 99 mg/dL (70-99) Calcium Level 9.1 mg/dL (8.5-10.1) Glucose (Fingerstick) 106 mg/dL (70-99) Laboratory Tests Test 02/11/19 11:23 02/11/19 16:55 02/11/19 20:57 02/12/19 05:15 Glucose (Fingerstick) 136 mg/dL (70-99) 147 mg/dL (70-99) 137 mg/dL (70-99) White Blood Count 9.4 x10^3/uL (4.0-11.0) Red Blood Count 4.29 x10^6/uL (3.50-5.40) Hemoglobin 13.0 g/dL (12.0-15.5) Hematocrit 38.4 % (36.0-47.0) Mean Corpuscular Volume 90 fL (79-100) Mean Corpuscular Hemoglobin 30 pg (25-35) Mean Corpuscular Hemoglobin Concent 34 g/dL (31-37) Red Cell Distribution Width 15.9 % (11.5-14.5) Platelet Count 248 x10^3/uL (140-400) Neutrophils (%) (Auto) 63 % (31-73) Lymphocytes (%) (Auto) 25 % (24-48) Monocytes (%) (Auto) 9 % (0-9) Eosinophils (%) (Auto) 3 % (0-3) Basophils (%) (Auto) 1 % (0-3) Neutrophils # (Auto) 5.9 x10^3uL (1.8-7.7) Lymphocytes # (Auto) 2.4 x10^3/uL (1.0-4.8) Monocytes # (Auto) 0.8 x10^3/uL (0.0-1.1) Eosinophils # (Auto) 0.2 x10^3/uL (0.0-0.7) Basophils # (Auto) 0.1 x10^3/uL (0.0-0.2) Sodium Level 142 mmol/L (136-145) Potassium Level 3.5 mmol/L (3.5-5.1) Chloride Level 103 mmol/L (98-107) Carbon Dioxide Level 28 mmol/L (21-32) Anion Gap 11 (6-14) Blood Urea Nitrogen 27 mg/dL (7-20) Creatinine 1.1 mg/dL (0.6-1.0) Estimated GFR (Cockcroft-Gault) 46.8 Glucose Level 99 mg/dL (70-99) Calcium Level 9.1 mg/dL (8.5-10.1) Test 02/12/19 07:32 Glucose (Fingerstick) 106 mg/dL (70-99) Medications Current Medications Aspirin (Jovanny Aspirin) 325 mg 1X ONCE PO Last administered on 02/10/19at 21:41; Start 02/10/19 at 22:00; Stop 02/10/19 at 22:01; Status DC Furosemide (Lasix) 40 mg 1X ONCE IVP Last administered on 02/10/19at 23:13; Start 02/10/19 at 23:00; Stop 02/10/19 at 23:01; Status DC Ondansetron HCl (Zofran) 4 mg PRN Q8HRS PRN IV NAUSEA/VOMITING 1ST CHOICE; Start 02/10/19 at 23:00; Stop 02/11/19 at 22:59; Status DC Insulin Human Lispro (HumaLOG) 0-5 UNITS TIDWMEALS SQ ; Start 02/11/19 at 08:00; Stop 02/12/19 at 08:19; Status DC Dextrose (Dextrose 50%-Water Syringe) 12.5 gm PRN Q15MIN PRN IV SEE COMMENTS; Start 02/10/19 at 23:00 Insulin Glargine (Lantus) 60 units QHS SQ Last administered on 02/11/19at 21:07; Start 02/11/19 at 21:00 Insulin Human Lispro (HumaLOG) 12 units TIDWMEALS SQ Last administered on 02/12/19at 08:26; Start 02/11/19 at 12:00 Aspirin (Children'S Aspirin) 81 mg DAILY PO Last administered on 02/12/19 08:18; Start 02/11/19 at 13:00 Lisinopril (Prinivil) 20 mg DAILY PO Last administered on 02/12/19at 08:18; Start 02/11/19 at 13:00 Metoprolol Succinate (Toprol Xl) 25 mg DAILY PO Last administered on 02/12/19at 08:17; Start 02/11/19 at 13:00 Simvastatin (Zocor) 10 mg QHS PO Last administered on 02/11/19at 21:02; Start 02/11/19 at 21:00 Furosemide (Lasix) 40 mg 1X ONCE IVP Last administered on 02/11/19at 13:11; Start 02/11/19 at 12:45; Stop 02/11/19 at 12:51; Status DC Apixaban (Eliquis) 5 mg BID PO Last administered on 02/12/19at 08:18; Start 02/11/19 at 13:00 Info (Anti-Coagulation Monitoring By Pharmacy) 1 each PRN DAILY PRN MC SEE COMMENTS; Start 02/11/19 at 13:00 Insulin Human Lispro (HumaLOG) 0-9 UNITS TIDWMEALS SQ ; Start 02/12/19 at 12:00 Dextrose (Dextrose 50%-Water Syringe) 12.5 gm PRN Q15MIN PRN IV SEE COMMENTS; Start 02/12/19 at 08:30 Levothyroxine Sodium (Synthroid) 50 mcg DAILY06 PO ; Start 02/12/19 at 10:30 Acetaminophen (Tylenol) 500 mg PRN Q6HRS PRN PO MILD PAIN / TEMP; Start 02/12/19 at 08:30 Ondansetron HCl (Zofran) 4 mg PRN Q6HRS PRN IV NAUSEA/VOMITING; Start 02/12/19 at 08:30 Active Scripts Active Reported Humalog (Insulin Lispro) 100 Unit/1 Ml Insuln.pen 12 Unit SQ TIDWMEALS Lantus Solostar (Insulin Glargine,Hum.rec.anlog) 100 Unit/1 Ml Insuln.pen 60 Unit SQ QHS Aspirin 81 Mg Tab.chew 81 Mg PO DAILY Toprol Xl (Metoprolol Succinate) 25 Mg Tab.er.24h 25 Mg PO DAILY Lisinopril 20 Mg Tablet 20 Mg PO DAILY PRN Simvastatin 10 Mg Tablet 10 Mg PO DAILY Vitals/I & O Vital Sign - Last 24 Hours 02/11/19 02/11/19 02/11/19 02/11/19 11:00 13:12 13:13 15:00 Temp 97.8 98.0 97.8 98.0 Pulse 59 77 77 53 Resp 18 18 B/P (MAP) 128/66 (86) 128/66 128/66 130/46 (74) Pulse Ox 92 100 O2 Delivery Room Air Room Air 02/11/19 02/11/19 02/11/19 02/12/19 19:12 20:10 22:14 02:16 Temp 98.0 98.3 97.8 98.0 98.3 97.8 Pulse 99 66 57 Resp 16 14 14 B/P (MAP) 112/42 (65) 108/42 (64) 120/41 (67) Pulse Ox 94 94 97 O2 Delivery Room Air Room Air Room Air Room Air 02/12/19 02/12/19 02/12/19 02/12/19 07:00 08:00 08:17 08:18 Temp 97.8 97.8 Pulse 113 113 113 Resp 18 B/P (MAP) 129/66 (87) 129/66 129/66 Pulse Ox 95 O2 Delivery Room Air Room Air Intake and Output 02/11/19 02/11/19 02/12/19 15:00 23:00 07:00 Intake Total 100 ml 200 ml Output Total 1000 ml 1300 ml 0 ml Balance -1000 ml -1200 ml 200 ml REBECCA MCDONOUGH MD Feb 12, 2019 09:50
[2019-02-12] MEDS ORDERED: LOPERAMIDE 2 MG CAPSULE PO PRN (10:00)
[2019-02-12 10:18] LABS: FREE T4 1.13 ng/dL (0.76-1.46)
[2019-02-12] MEDS ORDERED: LEVOTHYROXINE 50 MCG TABLET PO SCH (10:30)
[2019-02-12 10:41] VITALS: BP 155/66
--- NOTE | 2019-02-12 11:44 | PDOC ---
PULMONARY PROGRESS NOTES Subjective PT LESS SOA Vitals Vital Signs Date Time Temp Pulse Resp B/P (MAP) Pulse Ox O2 Delivery O2 Flow Rate FiO2 02/12/19 10:41 97.8 119 18 155/66 (95) 100 Room Air 97.8 ROS: No Nausea, No Chest Pain, No Abdominal Pain, No Increase Cough General: Alert Cardiovascular: S1, S2 Abdomen: Soft Neuro Exam: Alert Extremities: No Edema Skin: Warm Labs Laboratory Tests Test 02/10/19 21:02 02/10/19 21:50 02/11/19 01:45 02/11/19 04:50 White Blood Count 9.7 x10^3/uL (4.0-11.0) Red Blood Count 4.29 x10^6/uL (3.50-5.40) Hemoglobin 12.5 g/dL (12.0-15.5) Hematocrit 38.4 % (36.0-47.0) Mean Corpuscular Volume 90 fL (79-100) Mean Corpuscular Hemoglobin 29 pg (25-35) Mean Corpuscular Hemoglobin Concent 32 g/dL (31-37) Red Cell Distribution Width 16.2 % (11.5-14.5) Platelet Count 233 x10^3/uL (140-400) Neutrophils (%) (Auto) 60 % (31-73) Lymphocytes (%) (Auto) 29 % (24-48) Monocytes (%) (Auto) 9 % (0-9) Eosinophils (%) (Auto) 3 % (0-3) Basophils (%) (Auto) 1 % (0-3) Neutrophils # (Auto) 5.8 x10^3uL (1.8-7.7) Lymphocytes # (Auto) 2.8 x10^3/uL (1.0-4.8) Monocytes # (Auto) 0.8 x10^3/uL (0.0-1.1) Eosinophils # (Auto) 0.2 x10^3/uL (0.0-0.7) Basophils # (Auto) 0.1 x10^3/uL (0.0-0.2) Prothrombin Time 13.5 SEC (11.7-14.0) Prothromb Time International Ratio 1.1 (0.8-1.1) Activated Partial Thromboplast Time 37 SEC (24-38) Sodium Level 140 mmol/L (136-145) 141 mmol/L (136-145) Potassium Level 4.0 mmol/L (3.5-5.1) 3.8 mmol/L (3.5-5.1) Chloride Level 105 mmol/L (98-107) 104 mmol/L (98-107) Carbon Dioxide Level 25 mmol/L (21-32) 25 mmol/L (21-32) Anion Gap 10 (6-14) 12 (6-14) Blood Urea Nitrogen 22 mg/dL (7-20) 22 mg/dL (7-20) Creatinine 0.8 mg/dL (0.6-1.0) 0.9 mg/dL (0.6-1.0) Estimated GFR (Cockcroft-Gault) 67.5 59.0 BUN/Creatinine Ratio 28 (6-20) Glucose Level 109 mg/dL (70-99) 133 mg/dL (70-99) Calcium Level 9.3 mg/dL (8.5-10.1) 9.5 mg/dL (8.5-10.1) Magnesium Level 2.0 mg/dL (1.8-2.4) Total Bilirubin 0.3 mg/dL (0.2-1.0) Aspartate Amino Transf (AST/SGOT) 19 U/L (15-37) Alanine Aminotransferase (ALT/SGPT) 26 U/L (14-59) Alkaline Phosphatase 89 U/L (46-116) Creatine Kinase 72 U/L (26-192) Creatine Kinase MB (Mass) 1.3 ng/mL (0.0-3.6) Creatine Kinase MB Relative Index % (0-4) Troponin I Quantitative < 0.017 ng/mL (0.000-0.055) < 0.017 ng/mL (0.000-0.055) 0.017 ng/mL (0.000-0.055) WM-Hmt-G-Type Natriuretic Peptide 1462 pg/mL (0-449) Total Protein 7.4 g/dL (6.4-8.2) Albumin 3.3 g/dL (3.4-5.0) Albumin/Globulin Ratio 0.8 (1.0-1.7) Lipase 101 U/L (73-393) Urine Collection Type Unknown Urine Color Yellow Urine Clarity Clear Urine pH 5.0 Urine Specific [place] 1.025 Urine Protein Negative mg/dL (NEG-TRACE) Urine Glucose (UA) Negative mg/dL (NEG) Urine Ketones (Stick) Negative mg/dL (NEG) Urine Blood Negative (NEG) Urine Nitrite Negative (NEG) Urine Bilirubin Negative (NEG) Urine Urobilinogen Dipstick 0.2 mg/dL (0.2 mg/dL) Urine Leukocyte Esterase Trace (NEG) Urine RBC Occ /HPF (0-2) Urine WBC 1-4 /HPF (0-4) Urine Squamous Epithelial Cells Few /LPF Urine Bacteria 0 /HPF (0-FEW) Urine Hyaline Casts Few /HPF Urine Mucus Mod /LPF Triglycerides Level 78 mg/dL (0-150) Cholesterol Level 117 mg/dL (0-200) LDL Cholesterol, Calculated 55 mg/dL (0-100) VLDL Cholesterol, Calculated 16 mg/dL (0-40) Non-HDL Cholesterol Calculated 71 mg/dL (0-129) HDL Cholesterol 46 mg/dL (40-60) Cholesterol/HDL Ratio 2.5 Thyroid Stimulating Hormone (TSH) 9.990 uIU/mL (0.358-3.74) Test 02/11/19 07:42 02/11/19 11:23 02/11/19 16:55 02/11/19 20:57 Glucose (Fingerstick) 165 mg/dL (70-99) 136 mg/dL (70-99) 147 mg/dL (70-99) 137 mg/dL (70-99) Test 02/12/19 05:15 02/12/19 07:32 White Blood Count 9.4 x10^3/uL (4.0-11.0) Red Blood Count 4.29 x10^6/uL (3.50-5.40) Hemoglobin 13.0 g/dL (12.0-15.5) Hematocrit 38.4 % (36.0-47.0) Mean Corpuscular Volume 90 fL (79-100) Mean Corpuscular Hemoglobin 30 pg (25-35) Mean Corpuscular Hemoglobin Concent 34 g/dL (31-37) Red Cell Distribution Width 15.9 % (11.5-14.5) Platelet Count 248 x10^3/uL (140-400) Neutrophils (%) (Auto) 63 % (31-73) Lymphocytes (%) (Auto) 25 % (24-48) Monocytes (%) (Auto) 9 % (0-9) Eosinophils (%) (Auto) 3 % (0-3) Basophils (%) (Auto) 1 % (0-3) Neutrophils # (Auto) 5.9 x10^3uL (1.8-7.7) Lymphocytes # (Auto) 2.4 x10^3/uL (1.0-4.8) Monocytes # (Auto) 0.8 x10^3/uL (0.0-1.1) Eosinophils # (Auto) 0.2 x10^3/uL (0.0-0.7) Basophils # (Auto) 0.1 x10^3/uL (0.0-0.2) Sodium Level 142 mmol/L (136-145) Potassium Level 3.5 mmol/L (3.5-5.1) Chloride Level 103 mmol/L (98-107) Carbon Dioxide Level 28 mmol/L (21-32) Anion Gap 11 (6-14) Blood Urea Nitrogen 27 mg/dL (7-20) Creatinine 1.1 mg/dL (0.6-1.0) Estimated GFR (Cockcroft-Gault) 46.8 Glucose Level 99 mg/dL (70-99) Calcium Level 9.1 mg/dL (8.5-10.1) Free Thyroxine 1.13 ng/dL (0.76-1.46) Free Triiodothyronine (T3) pg/mL 2.32 pg/mL (2.18-3.98) Glucose (Fingerstick) 106 mg/dL (70-99) Laboratory Tests Test 02/11/19 16:55 02/11/19 20:57 02/12/19 05:15 02/12/19 07:32 Glucose (Fingerstick) 147 mg/dL (70-99) 137 mg/dL (70-99) 106 mg/dL (70-99) White Blood Count 9.4 x10^3/uL (4.0-11.0) Red Blood Count 4.29 x10^6/uL (3.50-5.40) Hemoglobin 13.0 g/dL (12.0-15.5) Hematocrit 38.4 % (36.0-47.0) Mean Corpuscular Volume 90 fL (79-100) Mean Corpuscular Hemoglobin 30 pg (25-35) Mean Corpuscular Hemoglobin Concent 34 g/dL (31-37) Red Cell Distribution Width 15.9 % (11.5-14.5) Platelet Count 248 x10^3/uL (140-400) Neutrophils (%) (Auto) 63 % (31-73) Lymphocytes (%) (Auto) 25 % (24-48) Monocytes (%) (Auto) 9 % (0-9) Eosinophils (%) (Auto) 3 % (0-3) Basophils (%) (Auto) 1 % (0-3) Neutrophils # (Auto) 5.9 x10^3uL (1.8-7.7) Lymphocytes # (Auto) 2.4 x10^3/uL (1.0-4.8) Monocytes # (Auto) 0.8 x10^3/uL (0.0-1.1) Eosinophils # (Auto) 0.2 x10^3/uL (0.0-0.7) Basophils # (Auto) 0.1 x10^3/uL (0.0-0.2) Sodium Level 142 mmol/L (136-145) Potassium Level 3.5 mmol/L (3.5-5.1) Chloride Level 103 mmol/L (98-107) Carbon Dioxide Level 28 mmol/L (21-32) Anion Gap 11 (6-14) Blood Urea Nitrogen 27 mg/dL (7-20) Creatinine 1.1 mg/dL (0.6-1.0) Estimated GFR (Cockcroft-Gault) 46.8 Glucose Level 99 mg/dL (70-99) Calcium Level 9.1 mg/dL (8.5-10.1) Free Thyroxine 1.13 ng/dL (0.76-1.46) Free Triiodothyronine (T3) pg/mL 2.32 pg/mL (2.18-3.98) Medications Active Scripts Medications Dose Route/Sig Max Daily Dose Days Date Category Humalog (Insulin Lispro) 100 Unit/1 Ml Insuln.pen 12 Unit SQ TIDWMEALS 02/11/19 Reported Lantus Solostar (Insulin Glargine,Hum.rec.anlog) 100 Unit/1 Ml Insuln.pen 60 Unit SQ QHS 02/11/19 Reported Aspirin 81 Mg Tab.chew 81 Mg PO DAILY 02/11/19 Reported Toprol Xl (Metoprolol Succinate) 25 Mg Tab.er.24h 25 Mg PO DAILY 02/11/19 Reported Lisinopril 20 Mg Tablet 20 Mg PO DAILY PRN 02/11/19 Reported Simvastatin 10 Mg Tablet 10 Mg PO DAILY 02/11/19 Reported Impression . IMPRESSION: 1. Acute on chronic diastolic heart failure. 2. Abnormal x-ray compatible with the above heart failure. 3. Possible mild interstitial lung disease. 4. Severe hypothyroidism. 5. New atrial fibrillation with rapid ventricular response. 6. Obstructive sleep apnea. The patient intolerant to CPAP. <Conclusion> The left ventricular systolic function is normal and the ejection fraction is within normal range. The Ejection Fraction is 60-65%. There is grossly normal LV segmental wall motion. Septal motion suggestive of conduction defect. Plan . PT HAS NOT USED CPAP FOR SOME TIME FAILED CPAP WILL OBTAIN A REPEAT STUDY WITH BIPAP TITRATION DIASHLEYE FOR NOW REPLACE YARELIS PARADA MD Feb 12, 2019 11:44
--- NOTE | 2019-02-12 12:09 | PDOC ---
DAYNA WE[facility] ACQUISITION LEAD 02/12/19 1209: CARDIO Progress Notes Date and Time Date of Service 02/12/19 Time of Evaluation 1145 Subjective Subjective: No Chest Pain, No shortness of breath, No Palpitations Vitals Vitals Vital Signs Date Time Temp Pulse Resp B/P (MAP) Pulse Ox O2 Delivery O2 Flow Rate FiO2 02/12/19 10:41 97.8 119 18 155/66 (95) 100 Room Air 97.8 Weight Weight [ ] Input and Output Intake and Output Intake and Output 02/12/19 07:00 Intake Total 300 ml Output Total 2300 ml Balance -2000 ml Intake Oral 300 ml Output Urine Total 2300 ml Laboratory Labs Laboratory Tests Test 02/11/19 16:55 02/11/19 20:57 02/12/19 05:15 02/12/19 07:32 Glucose (Fingerstick) 147 mg/dL (70-99) 137 mg/dL (70-99) 106 mg/dL (70-99) White Blood Count 9.4 x10^3/uL (4.0-11.0) Red Blood Count 4.29 x10^6/uL (3.50-5.40) Hemoglobin 13.0 g/dL (12.0-15.5) Hematocrit 38.4 % (36.0-47.0) Mean Corpuscular Volume 90 fL (79-100) Mean Corpuscular Hemoglobin 30 pg (25-35) Mean Corpuscular Hemoglobin Concent 34 g/dL (31-37) Red Cell Distribution Width 15.9 % (11.5-14.5) Platelet Count 248 x10^3/uL (140-400) Neutrophils (%) (Auto) 63 % (31-73) Lymphocytes (%) (Auto) 25 % (24-48) Monocytes (%) (Auto) 9 % (0-9) Eosinophils (%) (Auto) 3 % (0-3) Basophils (%) (Auto) 1 % (0-3) Neutrophils # (Auto) 5.9 x10^3uL (1.8-7.7) Lymphocytes # (Auto) 2.4 x10^3/uL (1.0-4.8) Monocytes # (Auto) 0.8 x10^3/uL (0.0-1.1) Eosinophils # (Auto) 0.2 x10^3/uL (0.0-0.7) Basophils # (Auto) 0.1 x10^3/uL (0.0-0.2) Sodium Level 142 mmol/L (136-145) Potassium Level 3.5 mmol/L (3.5-5.1) Chloride Level 103 mmol/L (98-107) Carbon Dioxide Level 28 mmol/L (21-32) Anion Gap 11 (6-14) Blood Urea Nitrogen 27 mg/dL (7-20) Creatinine 1.1 mg/dL (0.6-1.0) Estimated GFR (Cockcroft-Gault) 46.8 Glucose Level 99 mg/dL (70-99) Calcium Level 9.1 mg/dL (8.5-10.1) Free Thyroxine 1.13 ng/dL (0.76-1.46) Free Triiodothyronine (T3) pg/mL 2.32 pg/mL (2.18-3.98) Test 02/12/19 11:39 Glucose (Fingerstick) 108 mg/dL (70-99) Physical Exam Chest: Symmetric LUNGS: Clear to Auscultation Heart: S1S2, no murmurs, irregularly irregular Abdomen: Soft N/T Extremities: Other (trace LE edema bilaterally) Neurology: alert, oriented, follow commands Assessment Assessment 1. Acute on chronic diastolic CHF: now compensated. Echo with preserved LV systolic function 2. CAD; remote CABG 3. AFIB; new. Rate intermittently elevated on BB. HR in upper 50's recorded on vitals, but no significant bradycardia noted on review of tele. 4. Hypothyroidism; new. 5. HTN; controlled 6. Diabetes, II 7. Hyperlipidemia 8. GAYLE; noncompliant with CPAP Recommendations Eliquis for stroke prevention. BB for rate control. Will increase to metoprolol tartrate 25mg BID. If no significant bradycardia with this, will convert back to long-acting at 50mg Secondary prevention; ASA, statin, ACEi, BB Will arrange for outpatient event monitor to note arrhythmia burden and guide OAC therapy. consider outpatient ischemic eval. CARLEY SHANNON MD 02/12/19 [id number]: CARDIO Progress Notes Plan Plan Pt. seen and examined. Agree with above [employer] note. Discussed with patient f/u in the office in 4-6 weeks. DAYNA WELLINGTON APRN Feb 12, 2019 12:09 CARLEY SHANNON MD Feb 12, 2019 17:41
--- NOTE | 2019-02-12 12:29 | NUR ---
SS following up with discharge planning. PT/OT evaluated and recommended home. Pt is currently on room air. Discharge disposition is currently return to home with family. No discharge needs noted at this time. SS will continue to follow for pending discharge needs.
[2019-02-12 14:34] VITALS: BP 107/50
[2019-02-12] MEDS ORDERED: LEVO50TA PO (17:45)
[2019-02-12] MEDS ORDERED: METOPROLOL TART IMMED RELEASE 25 MG TABLET. PO SCH (21:00)
== END 2019-02-12 18:33 | disposition home or self-care (01) | DRG 308 ==
LOC: ER 20:45 → 2 SOUTH 22:25
PROVIDERS: ADMIT Internal Medicine; ATTEND Internal Medicine
DX: I48.91 Unspecified atrial fibrillation (principal); I50.43 Acute on chronic combined systolic (congestive) and diastolic (congestive) heart failure; Z68.41 Body mass index [BMI] 40.0-44.9, adult; E78.00 Pure hypercholesterolemia, unspecified; E11.9 Type 2 diabetes mellitus without complications; I25.10 Atherosclerotic heart disease of native coronary artery without angina pectoris; F41.9 Anxiety disorder, unspecified; I11.0 Hypertensive heart disease with heart failure; E03.9 Hypothyroidism, unspecified; G47.33 Obstructive sleep apnea (adult) (pediatric); E66.01 Morbid (severe) obesity due to excess calories; E78.5 Hyperlipidemia, unspecified; K58.0 Irritable bowel syndrome with diarrhea; Z95.1 Presence of aortocoronary bypass graft; Z91.19 Patient's noncompliance with other medical treatment and regimen; Z79.4 Long term (current) use of insulin; Z82.49 Family history of ischemic heart disease and other diseases of the circulatory system
CPT/HCPCS: 36415; 71046; 80048; 80053; 80061; 81001; 82553; 82962; 83690; 83735; 83880; 84439; 84443; 84481; 84484; 85025; 85610; 85730; 87086; 93005; 93306; 96374; J1815; J1940; 99285-25

== ENCOUNTER → 2019-04-06 | Outpatient (CLI) | payer MEDICARE ==
[~2019-04-06] MED LIST: ASPI-630 PO; INSU100I11 SQ; INSU100I13 SQ; LEVO50TA PO; LISI-334 PO; METO25TA2 PO; OXYMETAZOLINE 0.05% NASAL SPRAY 30ML BOTTLE. NS ONE; SIMV10TA3 PO; ZOLPIDEM 5 MG TABLET. PO ONE
--- NOTE | 2019-04-07 18:58 | SLEEP ---
DATE OF STUDY: 04/06/2019 REFERRING PHYSICIAN: Yarelis Orbien MD. The patient is 88 years old who weighs 212 pounds with a BMI of 42. The patient's Colquitt score was 12. The patient underwent split night study performed at [facility]. During the night study, the patient spent 514 minutes in bed and slept for 438 minutes with a sleep efficiency of 85%. Sleep latency was 102 minutes with a REM latency of 264 minutes. Overall, sleep architecture showed increased stage 1 and stage 2 sleep, normal slow wave sleep and absent REM sleep. During the initial diagnostic portion of the study, the patient slept for 97 minutes. During that time, there were 5 obstructive apneas, no mixed apneas, 1 central apnea and 28 hypopneas. The patient's apnea hypopnea index was 21 per hour with a supine index of 21 per hour as well. No REM sleep was observed. EKG monitoring revealed normal sinus rhythm. Occasional sinus tachycardia observed. No sustained arrhythmias observed. Nocturnal oximetry study revealed a mean oxygen saturation of 96% with the lowest of 75%. 5% of time, oxygen saturation remained between 80% and 89%. PLMs were seen at index of 12 per hour and 4 per hour caused EEG arousals. The patient met the criteria for CPAP initiation, was started at 5 cm water and titrated up to 13 cm water. However, best results were seen at a CPAP pressure of 7 cm water, the patient slept for 224 minutes. The patient had supine sleep throughout. No REM sleep was observed. The patient's AHI at that pressure was 1.9 per hour and oxygen saturation remained above 90%. IMPRESSION: 1. Moderate sleep apnea-hypopnea syndrome at an apnea hypopnea index of 21 per hour. 2. Mild nocturnal hypoxia secondary to obstructive sleep apnea, but resolved with CPAP. 3. Mild periodic limb movements, which do not need to be treated unless the patient has symptoms of restless legs during the day. RECOMMENDATIONS: 1. CPAP at 7 cm water completely eliminated the patient's sleep apnea and should be used on a nightly basis. 2. Follow up in 4-6 weeks to assess compliance with CPAP and to document clinical improvement. 3. Weight loss is strongly advised. 4. Avoid [employer] depressants. 5. Caution regarding driving until symptoms of sleep apnea resolve with the use of CPAP. LISA BARNETT MD DR: LEON/talha JOB#: [id number] / [id number] YARELIS Latham MD
== END | disposition home or self-care (01) ==
LOC: RT 18:49
PROVIDERS: ATTEND Internal Medicine Pulmonary Disease
DX: G47.33 Obstructive sleep apnea (adult) (pediatric) (principal)
CPT/HCPCS: 95810

== ENCOUNTER 2019-08-19 06:29 | Inpatient (IN) | payer MEDICARE ==
[~2019-08-19] VITALS: Ht 152.4 cm; Wt 96.7 kg
[~2019-08-19 06:29] MED LIST changes: +APIX5TAB PO; +FURO-69 PO; -OXYMETAZOLINE 0.05% NASAL SPRAY 30ML BOTTLE. NS ONE; +POTA10TA12 PO; +SIMV10TA15 PO; -SIMV10TA3 PO; -ZOLPIDEM 5 MG TABLET. PO ONE
[2019-08-19] MEDS ORDERED: PROPOFOL 20 ML IV ONE (06:45)
[2019-08-19] MEDS ORDERED: LIDOCAINE 2% PF 5 ML VIAL. ONE (06:45)
[2019-08-19] MEDS ORDERED: LIDOCAINE 2% VISCOUS 15 ML SOLUTION. SWSW ONE (07:00)
[2019-08-19] MEDS ORDERED: LIDOCAINE 2% TOPICAL JELLY 30GM TUBE. TP ONE (07:00)
[2019-08-19] MEDS ORDERED: LIDOCAINE 1% PF 2 ML VIAL. ID PRN (07:00)
[2019-08-19] MEDS ORDERED: IV RINGERS,LACTATED 1000ML 1,000 ML IV SCH (07:00)
[2019-08-19] MEDS ORDERED: fentaNYL PF VIAL 100 MCG/2 ML VIAL IV PRN ×2 (07:00)
[2019-08-19] MEDS ORDERED: PROCHLORPERAZINE 10 MG/2 ML VIAL. IV PRN (07:00)
[2019-08-19] MEDS ORDERED: ONDANSETRON PF 4 MG/2 ML VIAL. IV PRN (07:00)
[2019-08-19] MEDS ORDERED: BENZOCAINE ONE 20% MUCOSAL SPRAY. MM (07:00)
[2019-08-19 07:28] LABS: BASO # 0.1 x10^3/uL (0.0-0.2); BASO % 1 % (0-3); EOS # 0.2 x10^3/uL (0.0-0.7); EOS % 2 % (0-3); HEMATOCRIT 37.7 % (36.0-47.0); HEMOGLOBIN 12.4 g/dL (12.0-15.5); LYMPH # 1.8 x10^3/uL (1.0-4.8); LYMPH % 21 % (24-48); MEAN CORPUSCULAR HEMOGLOBIN 29 pg (25-35); MEAN CORPUSCULAR HGB CONC 33 g/dL (31-37); MEAN CORPUSCULAR VOLUME 88 fL (79-100); MONO # 0.6 x10^3/uL (0.0-1.1); MONO % 7 % (0-9); NEUT # 5.7 x10^3/uL (1.8-7.7); NEUT % 68 % (31-73); PLATELET COUNT 211 x10^3/uL (140-400); RED BLOOD COUNT 4.27 x10^6/uL (3.50-5.40); RED CELL DISTRIBUTION WIDTH 17.3 % (11.5-14.5); WHITE BLOOD COUNT 8.3 x10^3/uL (4.0-11.0)
[2019-08-19 07:52] LABS: GFR 52.2; POTASSIUM 4.4 mmol/L (3.5-5.1)
--- NOTE | 2019-08-19 09:37 | EKG ---
[facility] [address] [place] [address] Test Date: 2019-08-19 Test Time: 14:30:33 Pat Name: JULIO PERKINS Department: Room: Gender: F Patient Ombudsperson: BETTIE : 1930 Requested By: CARLEY SHANNON Order Number: [id number] Reading MD: Measurements Intervals [place] Rate: 62 P: 90 MN: 222 QRS: -17 QRSD: 80 T: -7 QT: 424 QTc: 433 Interpretive Statements SINUS RHYTHM PROLONGED MN INTERVAL LEFTWARD AXIS ABNORMAL ECG RI6.01 Compared to ECG 02/10/2019 21:00:41 First degree AV block now present Atrial fibrillation no longer present T-wave abnormality no longer present Possible ischemia no longer present
--- NOTE | 2019-08-19 11:01 | CARD ---
MR#: [id number] Date of Study: 08/19/2019 Ordering Physician: CARLEY SHANNON, Referring Physician: CARLEY SHANNON, Tech: Fay Tillman BARRY APPROVED REPORT EXAM: Transesophageal echocardiogram with color flow Doppler and Synchronized Cardioversion. INDICATION Atrial Fibrillation Reason For Test : Rule out Intracardiac Thrombus. PROCEDURE After obtaining informed consent, patient underwent transesophageal echo in the PACU. Type of Sedation : General Anesthesia Sedation was administered by General Anesthesia. Sedation was achieved with Propofol 70mg intravenously. Synchronized Cardioversion attempted: Unsuccessful Throughout the procedure, the blood pressure, pulse oximetry, cardiac rhythm, and rate were monitored . LEFT VENTRICLE The left ventricle is normal size. There is normal left ventricular wall thickness. The left ventricu lar systolic function is mildly decreased. LVEF of 40-45% Mild global hypokinesis. RIGHT VENTRICLE The right ventricle is normal size. There is normal right ventricular wall thickness. The right ventr icular systolic function is normal. ATRIA The left atrium is mildly dilated. The right atrium is moderately dilated. The interatrial septum is intact with no evidence for an atrial septal defect or patent foramen ovale as noted on 2-D or Dopple r imaging. There is no thrombus noted in the left atrial appendage. AORTIC VALVE The aortic valve is trileaflet. The aortic valve is mildly calcified. Doppler and Color Flow revealed no significant aortic regurgitation. There is no significant aortic valvular stenosis. There is no a ortic valvular vegetation. MITRAL VALVE The mitral valve is moderately thickened. There is no evidence of mitral valve prolapse. There is no mitral valve stenosis. Doppler and Color-flow revealed mild to moderate mitral regurgitation. TRICUSPID VALVE The tricuspid valve is normal in structure and function. Doppler and Color Flow revealed moderate to severe tricuspid regurgitation. There is no tricuspid valve prolapse or vegetation. There is no tricu spid valve stenosis. PULMONIC VALVE The pulmonic valve is not well visualized. GREAT VESSELS The aortic root is normal in size. Critical Notification Critical Value: No <Conclusion> The left ventricular systolic function is mildly decreased. LVEF of 40-45% Mild global hypokinesis. Doppler and Color-flow revealed mild to moderate mitral regurgitation. Doppler and Color Flow revealed moderate to severe tricuspid regurgitation. Limited SHE only as patient developed respiratory distress requiring bag mask ventilation. Unsuccessful cardioversion Signed by : Carley Shannon, Electronically Approved : 08/19/2019 11:01:21
[2019-08-19 12:00] VITALS: BP 171/70
--- NOTE | 2019-08-19 12:00 | NUR ---
Patient arrived to room 202 via wheelchair from recovery at 1200. Daughter at bedside. Patient A&OX4. VSS. No complaints of pain. The patient, PERKINS,JULIO Velázquez, 88 y/o, F admitted by CARLEY SHANNON MD, was given written information regarding hospital policies, unit procedures and contact persons. Valuables were checked and noted. Will continue to monitor.
--- NOTE | 2019-08-19 13:18 | PDOC1 ---
History and Physical Visit Information Date of Admission: Aug 19, 2019 at 12:09 Source: Patient History of Present Illness History of Present Illness Awilda Cruz is a pleasant 88-year-old woman coming into the hospital today for a planned cardioversion procedure. She was seen in the office previously for atrial fibrillation and due to persistent dyspnea she was evaluated for possible cardioversion. She has been on an to regulation and antihypertensive therapy. She's had persistent exertional dyspnea with moderate lifestyle limitations. She has not had any syncope or palpitations. She was brought to the postanesthesia care unit and after a transesophageal echo confirmed no evidence of left atrial appendage thrombus she was then cardioverted with a 200 J shock. Initially this was not successful and the patient remained in atrial fibrillation with a slow ventricular response. The transesophageal echo was only limited due to significant respiratory distress requiring bag mask ventilation as noted in the SHE report. Approximately 2 hours after the procedure she remained in sinus bradycardia with PACs and due to some lightheadedness and dizziness a decision was made to admit the patient for overnight observation. Cardiac Risk Factors Comments 1 coronary artery disease status post bypass approximately 10 years ago Hypertension Dyslipidemia Chronic diastolic heart failure Severe tricuspid regurgitation Moderate mitral regurgitation Morbid obesity Current Medications Current Medications Current Medications Benzocaine (Hurricaine One) 2 spray 1X ONCE MM Last administered on 08/19/19at 08:45; Start 08/19/19 at 07:00; Stop 08/19/19 at 07:01; Status DC Fentanyl Citrate (Fentanyl 2ml Vial) 25 mcg PRN Q5MIN PRN IV MILD PAIN 1-3; Start 08/19/19 at 07:00; Stop 08/20/19 at 06:59 Fentanyl Citrate (Fentanyl 2ml Vial) 50 mcg PRN Q5MIN PRN IV MODERATE TO SEVERE PAIN; Start 08/19/19 at 07:00; Stop 08/20/19 at 06:59 Lidocaine HCl (Lidocaine Pf 2% Vial) 5 ml STK-MED ONCE .ROUTE ; Start 08/19/19 at 06:45; Stop 08/19/19 at 06:45; Status DC Lidocaine HCl (Viscous Lidocaine) 15 ml 1X ONCE SWSW Last administered on 1 at 08:54; Start 08/19/19 at 07:00; Stop 08/19/19 at 07:01; Status DC Lidocaine HCl (Xylocaine 2% Topical 30gm Tube) 1 andres 1X ONCE TP Last administered on 08/19/19at 08:54; Start 08/19/19 at 07:00; Stop 08/19/19 at 07:01; Status DC Lidocaine HCl (Xylocaine-Mpf 1% 2ml Vial) 2 ml PRN 1X PRN ID IV START; Start 08/19/19 at 07:00; Stop 08/20/19 at 06:59 Ondansetron HCl (Zofran) 4 mg PRN Q6HRS PRN IV NAUSEA/VOMITING; Start 08/19/19 at 07:00; Stop 08/20/19 at 06:59 Prochlorperazine Edisylate (Compazine) 5 mg PACU PRN PRN IV NAUSEA, MRX1; Start 08/19/19 at 07:00; Stop 08/20/19 at 06:59 Propofol 20 ml @ As Directed STK-MED ONCE IV ; Start 08/19/19 at 06:45; Stop 08/19/19 at 06:45; Status DC Ringer's Solution 1,000 ml @ 30 mls/hr Q24H IV Last administered on 08/19/19at 07:34; Start 08/19/19 at 07:00; Stop 08/19/19 at 18:59 Allergies Allergies Allergies Coded Allergies Type Severity Reaction Last Updated Verified codeine Allergy Intermediate 02/10/19 Yes Social History Comments No alcohol, tobacco or illicit drug use. ROS Review of System Negative for 10 out of 14 systems reviewed unless otherwise mentioned above in history of present illness Physical Exam Comments The patient appeared well nourished and normally developed. Head exam is unremarkable. No scleral icterus or corneal arcus noted. Neck is without jugular venous distension, thyromegaly, or carotid bruits. Carotid upstrokes are brisk bilaterally. Lungs are clear to auscultation and percussion. Cardiac exam reveals the PMI to be normally sized and situated. Rhythm is regular. First and second heart sounds normal. No murmurs, rubs or gallops. Abdominal exam reveals normal bowel sounds, no masses, no organomegaly and no aortic enlargement. Extremities are nonedematous and both femoral and pedal pulses are normal. Msk: No traumua Neuro: No focal deficits Vitals VITALS Vital Signs Date Time Temp Pulse Resp B/P (MAP) Pulse Ox O2 Delivery O2 Flow Rate FiO2 08/19/19 12:00 98.4 54 18 171/70 (103) 95 Room Air 98.4 08/19/19 10:05 2 Labs Labs Laboratory Tests Test 08/19/19 07:10 08/19/19 07:32 08/19/19 09:38 White Blood Count 8.3 x10^3/uL (4.0-11.0) Red Blood Count 4.27 x10^6/uL (3.50-5.40) Hemoglobin 12.4 g/dL (12.0-15.5) Hematocrit 37.7 % (36.0-47.0) Mean Corpuscular Volume 88 fL (79-100) Mean Corpuscular Hemoglobin 29 pg (25-35) Mean Corpuscular Hemoglobin Concent 33 g/dL (31-37) Red Cell Distribution Width 17.3 % (11.5-14.5) Platelet Count 211 x10^3/uL (140-400) Neutrophils (%) (Auto) 68 % (31-73) Lymphocytes (%) (Auto) 21 % (24-48) Monocytes (%) (Auto) 7 % (0-9) Eosinophils (%) (Auto) 2 % (0-3) Basophils (%) (Auto) 1 % (0-3) Neutrophils # (Auto) 5.7 x10^3/uL (1.8-7.7) Lymphocytes # (Auto) 1.8 x10^3/uL (1.0-4.8) Monocytes # (Auto) 0.6 x10^3/uL (0.0-1.1) Eosinophils # (Auto) 0.2 x10^3/uL (0.0-0.7) Basophils # (Auto) 0.1 x10^3/uL (0.0-0.2) Prothrombin Time 15.0 SEC (11.7-14.0) Prothromb Time International Ratio 1.2 (0.8-1.1) Sodium Level 141 mmol/L (136-145) Potassium Level 4.4 mmol/L (3.5-5.1) Chloride Level 107 mmol/L (98-107) Carbon Dioxide Level 25 mmol/L (21-32) Anion Gap 9 (6-14) Blood Urea Nitrogen 25 mg/dL (7-20) Creatinine 1.0 mg/dL (0.6-1.0) Estimated GFR (Cockcroft-Gault) 52.2 Glucose Level 141 mg/dL (70-99) Calcium Level 9.0 mg/dL (8.5-10.1) Glucose (Fingerstick) 123 mg/dL (70-99) 123 mg/dL (70-99) Laboratory Tests Test 08/19/19 07:10 08/19/19 07:32 08/19/19 09:38 White Blood Count 8.3 x10^3/uL (4.0-11.0) Red Blood Count 4.27 x10^6/uL (3.50-5.40) Hemoglobin 12.4 g/dL (12.0-15.5) Hematocrit 37.7 % (36.0-47.0) Mean Corpuscular Volume 88 fL (79-100) Mean Corpuscular Hemoglobin 29 pg (25-35) Mean Corpuscular Hemoglobin Concent 33 g/dL (31-37) Red Cell Distribution Width 17.3 % (11.5-14.5) Platelet Count 211 x10^3/uL (140-400) Neutrophils (%) (Auto) 68 % (31-73) Lymphocytes (%) (Auto) 21 % (24-48) Monocytes (%) (Auto) 7 % (0-9) Eosinophils (%) (Auto) 2 % (0-3) Basophils (%) (Auto) 1 % (0-3) Neutrophils # (Auto) 5.7 x10^3/uL (1.8-7.7) Lymphocytes # (Auto) 1.8 x10^3/uL (1.0-4.8) Monocytes # (Auto) 0.6 x10^3/uL (0.0-1.1) Eosinophils # (Auto) 0.2 x10^3/uL (0.0-0.7) Basophils # (Auto) 0.1 x10^3/uL (0.0-0.2) Prothrombin Time 15.0 SEC (11.7-14.0) Prothromb Time International Ratio 1.2 (0.8-1.1) Sodium Level 141 mmol/L (136-145) Potassium Level 4.4 mmol/L (3.5-5.1) Chloride Level 107 mmol/L (98-107) Carbon Dioxide Level 25 mmol/L (21-32) Anion Gap 9 (6-14) Blood Urea Nitrogen 25 mg/dL (7-20) Creatinine 1.0 mg/dL (0.6-1.0) Estimated GFR (Cockcroft-Gault) 52.2 Glucose Level 141 mg/dL (70-99) Calcium Level 9.0 mg/dL (8.5-10.1) Glucose (Fingerstick) 123 mg/dL (70-99) 123 mg/dL (70-99) ECG EKG: NSR VTE Prophylaxis Ordered VTE Prophylaxis Devices: Yes VTE Pharmacological Prophylaxi: Yes Assessment/Plan Assessment/Plan 1. Paroxysmal atrial fibrillation with symptom bradycardia 2. Hypertension 3. Dyslipidemia 4. Coronary artery disease 5. Chronic diastolic heart failure 6. Moderate to severe tricuspid regurgitation and moderate mitral regurgitation Plan: 1. We will plan on monitoring her heart rhythm over the next all the 24 hours and plan on holding her metoprolol therapy. 2. I had a long discussion with the patient and the family regarding further evaluation for dyspnea. We could consider a right left heart catheterization based on her goals of care. I also discussed with the patient should she may need a pacemaker if she has any episodes of tachybradycardia syndrome. The patient understands this and is willing to proceed as necessary. CARLEY SHANNON MD Aug 19, 2019 13:18
--- NOTE | 2019-08-19 14:18 | EKG ---
[facility] [address] [place] [address] Test Date: 2019-08-19 Test Time: 09:32:20 Pat Name: JULIO PERKINS Department: Room: 202 1 Gender: F Life Skills Instructor: STEPHANIE : 1930 Requested By: CARLEY SHANNON Order Number: [id number] Reading MD: Measurements Intervals [place] Rate: 36 P: [place]: QRS: -17 QRSD: 82 T: -19 QT: 476 QTc: 372 Interpretive Statements IRREGULAR RHYTHM, NO P-WAVE FOUND LEFTWARD AXIS T ABNORMALITY IN INFERIOR LEADS ABNORMAL ECG RI6.01 Unconfirmed report Compared to ECG 02/10/2019 21:00:41 Atrial fibrillation no longer present Possible ischemia no longer present T-wave abnormality still present
[2019-08-19] MEDS: LISINOPRIL 20 MG TABLET PO SCH (14:36)
[2019-08-19 15:00] VITALS: BP 131/63
[2019-08-19] MEDS ORDERED: hydrALAZINE 20 MG/ML VIAL. IVP PRN (15:30)
[2019-08-19] MEDS: FUROSEMIDE 20 MG TABLET PO SCH (16:00)
[2019-08-19] MEDS: POTASSIUM CHLORIDE 10 MEQ TABLET.ER. PO SCH (16:00)
[2019-08-19] MEDS ORDERED: APIXABAN 5 MG TABLET. PO ONE (17:30)
[2019-08-19] MEDS: ASPIRIN CHEWABLE 81 MG TABLET. PO SCH (17:37)
[2019-08-19] MEDS: INSULIN LISPRO 300 UNITS/3 ML VIAL. SQ SCH (17:43)
[2019-08-19 19:00] VITALS: BP 128/58
[2019-08-19] MEDS ORDERED: INSULIN GLARGINE SYRINGE. SQ SCH (21:00)
[2019-08-19] MEDS: INSULIN GLARGINE SYRINGE. SQ SCH (21:25)
[2019-08-19 23:00] VITALS: BP 129/64
[2019-08-20] VITALS (12 sets, daily range): BP systolic 122–183; BP diastolic 49–87
[2019-08-20] MEDS: LEVOTHYROXINE 50 MCG TABLET PO SCH (06:04)
[2019-08-20] MEDS: ASPIRIN CHEWABLE 81 MG TABLET. PO SCH (08:06)
[2019-08-20] MEDS: FUROSEMIDE 20 MG TABLET PO SCH (08:06)
[2019-08-20] MEDS: POTASSIUM CHLORIDE 10 MEQ TABLET.ER. PO SCH (08:06)
[2019-08-20] MEDS: LISINOPRIL 20 MG TABLET PO SCH (08:07)
[2019-08-20] MEDS: SIMVASTATIN 10 MG TABLET PO SCH ×2 (08:10→22:31)
[2019-08-20] MEDS: INSULIN LISPRO 300 UNITS/3 ML VIAL. SQ SCH ×3 (08:15→17:00)
--- NOTE | 2019-08-20 09:16 | EKG ---
[facility] [address] [place] [address] Test Date: 2019-08-19 Test Time: 07:50:58 Pat Name: JULIO PERKINS Department: Room: 202 1 Gender: F Fire Prevention Forester: YADIRA : 1930 Requested By: CARLEY SHANNON Order Number: [id number] Reading MD: Measurements Intervals [place] Rate: 72 P: [place]: QRS: -20 QRSD: 76 T: 2 QT: 402 QTc: 442 Interpretive Statements IRREGULAR RHYTHM, NO P-WAVE FOUND LEFTWARD AXIS NO SPECIFIC ECG ABNORMALITIES RI6.01 Compared to ECG 02/10/2019 21:00:41 Atrial fibrillation no longer present T-wave abnormality no longer present Possible ischemia no longer present
[2019-08-20] MEDS ORDERED: LIDOCAINE 1% PF 2 ML VIAL. ONE (12:58)
[2019-08-20] MEDS ORDERED: IOHEXOL 300 MG/ML 100ML VIAL. ONE (12:58)
[2019-08-20] MEDS ORDERED: MIDAZOLAM HCL/PF 2 MG/2 ML VIAL. ONE (13:01)
[2019-08-20] MEDS ORDERED: fentaNYL PF VIAL 100 MCG/2 ML VIAL ONE (13:01)
[2019-08-20] MEDS ORDERED: LIDOCAINE 1% Multi-Dose 20 ML VIAL. ONE (13:01)
[2019-08-20] MEDS ORDERED: HEPARIN for IV BOLUS 10,000 UNIT/10 ML VIAL. ONE (13:37)
[2019-08-20] MEDS ORDERED: VERAPAMIL 5 MG/2 ML VIAL. ONE (13:37)
[2019-08-20] MEDS ORDERED: NITROGLYCERIN 200 MCG/2 ML SYRINGE FOR CATH/VASC LAB. ONE (13:37)
[2019-08-20] MEDS ORDERED: NITROGLYCERIN 200 MCG/2 ML SYRINGE FOR CATH/VASC LAB. IART ONE (14:00)
[2019-08-20] MEDS ORDERED: fentaNYL PF VIAL 100 MCG/2 ML VIAL IV ONE (14:00)
[2019-08-20] MEDS ORDERED: IOHEXOL 300 MG/ML 100ML VIAL. IART ONE (14:00)
[2019-08-20] MEDS ORDERED: MIDAZOLAM HCL/PF 2 MG/2 ML VIAL. IV ONE (14:00)
[2019-08-20] MEDS ORDERED: VERAPAMIL 5 MG/2 ML VIAL. IART ONE (14:00)
[2019-08-20] MEDS ORDERED: HEPARIN for IV BOLUS 10,000 UNIT/10 ML VIAL. IART ONE (14:00)
[2019-08-20] MEDS ORDERED: LIDOCAINE 1% Multi-Dose 20 ML VIAL. INJ ONE (14:00)
[2019-08-20] MEDS ORDERED: NITROPRUSSIDE SODIUM 50 MG/2 ML VIAL IV ONE (14:07)
[2019-08-20] MEDS ORDERED: NITROPRUSSIDE 100MCG/ML SYRINGE. INT CORON ONE (14:15)
[2019-08-20] MEDS ORDERED: HEPARIN for IV BOLUS 10,000 UNIT/10 ML VIAL. IV ONE (14:15)
[2019-08-20] MEDS ORDERED: NITROGLYCERIN 200 MCG/2 ML SYRINGE FOR CATH/VASC LAB. ICAR ONE (14:15)
--- NOTE | 2019-08-20 14:17 | NUR ---
SS following for discharge planning. SS reviewed pt chart. Pt is from home and is currently on room air. Pt getting heart cath today. SS will continue to follow for discharge planning.
[2019-08-20] MEDS ORDERED: CLOPIDOGREL BISULFATE 75 MG TABLET ONE (14:43)
[2019-08-20] MEDS ORDERED: CLOPIDOGREL BISULFATE 75 MG TABLET PO ONE (14:45)
[2019-08-20] MEDS: APIXABAN 5 MG TABLET. PO SCH ×2 (15:26→22:30)
--- NOTE | 2019-08-20 19:03 | CARD ---
MR#: [id number] Date of Study: 08/20/2019 Ordering Physician: CARLEY SHANNON, Referring Physician: CARLEY SHANNON, Tech: RT Corey (R) APPROVED REPORT Technologist: RT Corey (R) Nurse: Maris Kendall R.N. Procedure(s) performed: Sedation Time: 88 minutes Dose: 146 Gycm2 Contrast: 155 mL Omnipaque Fluoro Time: 9.9 Minutes Left heart catheterization, coronary angiography, bypass angiography PCI to saphenous vein graft to the RCA HISTORY The patient is a 88 year-old female with a history of : previous cardiac transplant, coronary artery disease. INDICATION The indication(s) include : unstable angina , dyspnea. [facility] Clinical Frailty Scale [facility] Clinical Frailty Scale: Moderately Frail Heart Failure Heart Failure: Yes If Yes, Newly Diagnosed: No If Yes, HF Type: Diastolic If Yes, NYHA Class: Class III CASE TECHNIQUE During this case, Fluoroscopy and low osmolar contrast were used for imaging. PROCEDURE NARRATIVE Clinical indications: 88-year-old woman with prior coronary artery disease status post four-vessel bypass, recent paroxysma l atrial fibrillation and successful cardioversion 24 hours ago was admitted due to symptomatically b radycardia. Despite adequate treatment of her atrial fibrillation back to sinus rhythm she complained of persistent chest discomfort and dyspnea with exertion and due to her prior history of coronary di sease and a high pretest probability she was taken to the cardiac catheterization laboratory for furt her evaluation and treatment. Access: Under 2% lidocaine local anesthesia a 6 Palestinian sheath was placed in the left radial artery. Diagnostic angiography: Diagnostic angiography was performed with a JR4, JL 3.5 catheters. LVEDP was obtained with a JR4 cath eter. FINDINGS: Hemodynamics: LVEDP 19 mm Hg. No pull back gradient. Coronary angiography: LM is a large caliber vessel with normal angiographic appearance. LAD is a moderate caliber vessel with heavily calcified 70% stenosis in the proximal segment. The dis arnoldo vessel is seen to fill via robust HARMAN graft. D1 is ostially occluded. This is seen to fill via vein graft. LCX is a moderate caliber non-dominant vessel with diffuse 80% stenosis. LPL1 is a moderate caliber vessel with a proximal 80% stenosis. The mid to distal vessel is seen to f ill via a patent vein graft. RCA is a large caliber dominant vessel with a proximal 100% occlusion. The distal vessel is seen to f ill via an arterial graft. BYPASS ANGIOGRAPHY: HARMAN to LAD - Grossly patent without anastomotic stenosis. SVG sequential graft to D1/LPL1 - No significant proximal stenosis. The sequential portion has diffus e 50-70% stenosis. Arterial graft to RCA - There is a focal 90% mid body stenosis. Interventional technique: Based upon the present symptoms and angiographic findings and intervention was performed on the radia l graft to the RCA. Heparin only was used for an to regulation. Through a 6 Palestinian JR4 guide catheter a 0.014 inch pro-water wire was advanced to the distal RCA. Next, the graft was direct stented with a 3.0 x 12 mm Siria drug-eluting stent and postdilated with a 3 mm noncompliant balloon at 16 cindy. P rior to stenting the patient received intracoronary 9 prior to nitroglycerin therapy. A decision was made to direct stent the vessel without a filter due to small caliber vessel as this was likely an ar terial graft. Final angiography demonstrated excellent stent expansion with DEVANG-3 flow in the vessel and no evidence of guide or wire related complications and no acute reflow issues. The patient has a lready been on Eliquis therapy and also received Plavix 600 mg at case completion.. At case completion the left radial sheath was removed and a Terumo radial band was applied. There wer e no acute complications. This case was complex due to multiple arterial and venous bypass grafts and requiring left radial catheterization in a morbidly obese patient. Conclusion 1. Acute on chronic diastolic heart failure. 2. Severe three-vessel shinnecock coronary artery disease 3. 4 out of 4 bypass grafts patent with critical stenosis in the radial graft to the RCA 4. Successful PCI of the radial graft to the RCA with placement of a 3.0 x 12 mm drug-eluting stent. Recommendations 1. Continue aspirin, Eliquis and Plavix therapy for one week and then transition to Eliquis and Plavi x therapy only. 2. Aggressive medical therapy and consideration of cardiac rehabilitation. Signed by : Carley Shannon, Electronically Approved : 08/20/2019 19:02:28
[2019-08-20] MEDS: INSULIN GLARGINE SYRINGE. SQ SCH (22:32)
[2019-08-21 03:00] VITALS: BP 123/45
[2019-08-21] MEDS: LEVOTHYROXINE 50 MCG TABLET PO SCH (05:55)
[2019-08-21 07:29] VITALS: BP 146/57
[2019-08-21] MEDS: FUROSEMIDE 20 MG TABLET PO SCH (08:19)
[2019-08-21] MEDS: APIXABAN 5 MG TABLET. PO SCH (08:19)
[2019-08-21] MEDS: ASPIRIN CHEWABLE 81 MG TABLET. PO SCH (08:19)
[2019-08-21] MEDS: LISINOPRIL 20 MG TABLET PO SCH (08:20)
[2019-08-21] MEDS: POTASSIUM CHLORIDE 10 MEQ TABLET.ER. PO SCH (08:20)
[2019-08-21] MEDS: INSULIN LISPRO 300 UNITS/3 ML VIAL. SQ SCH ×2 (08:24→12:00)
[2019-08-21] MEDS ORDERED: CLOP75TA PO (09:20)
[2019-08-21] MEDS ORDERED: METO25TA4 PO (09:21)
[2019-08-21 10:31] LABS: HEMATOCRIT 37.9 % (36.0-47.0); HEMOGLOBIN 12.2 g/dL (12.0-15.5); RED BLOOD COUNT 4.3 x10^6/uL (3.50-5.40); RED CELL DISTRIBUTION WIDTH 17.5 % (11.5-14.5); WHITE BLOOD COUNT 7.4 x10^3/uL (4.0-11.0)
[2019-08-21 10:51] VITALS: BP 152/63
[2019-08-21 10:51] LABS: CALCIUM 9.1 mg/dL (8.5-10.1); CREATININE 0.9 mg/dL (0.6-1.0)
--- NOTE | 2019-08-21 13:27 | PDOC3 ---
DISCHARGE SUMMARY DISCHARGE SUMMARY: Date of discharge: 08/21/2019 Final Diagnoses: 1. CAD s/p PCI to the arterial graft to the RCA 2. HTN 3. PAF s/p CVN to SR 4. CKD 5. Dyslipidemia Procedures: SHE/CVN Cardiac cath s/p PCI Hospital Course: Pleasant 88-year-old woman who was initially seen in the outpatient setting for a planned SHE/cardioversion. Post-cardioversion she was in a junctional rhythm and had severe symptomatic bradycardia. She was admitted for observation with possible pacemaker placement. Despite being in sinus rhythm the next morning she continued to have exertional dyspnea and she had significant valvular disease as well noted on her transesophageal echocardiogram. After discussion of the risks and benefits a decision was made to proceed with cardiac catheterization due to significant refractory dyspnea and chest pressure and valvular heart disease. She underwent successful PCI to the arterial graft to the right coronary artery. She has also some residual disease in her other bypass grafts. Please refer to cardiac catheterization report for full details. After PCI she did well overnight and did not have any acute issues. On the day of discharge she denied any chest pain, dyspnea, orthopnea or PND at rest. She was ambulating well. Her left radial access site was unremarkable. Laboratory studies including CBC and BMP were also unremarkable. She was discharged home in stable condition. Discharge medications: 1. Aspirin 81 mg daily for one week 2. Plavix 75 g daily 3. Eliquis 5 mg by mouth twice a day 4. Simvastatin 10 mg daily 5. Lisinopril 20 mg daily 6. Metoprolol 12.5 mg by mouth twice a day Follow-up: She will be seen in the office in one month with Dr. Shannon Disposition: Home. Diet: Cardiac diet Restrictions: None CARLEY SHANNON MD Aug 21, 2019 13:27
--- NOTE | 2019-08-21 14:59 | NUR ---
Discharge Note: JULIO PERKINS [place] Discharge instructions and discharge home medications reviewed with Patient and a copy given. All questions have been answered and understanding verbalized. The following instructions and handouts were given: SHE, Post cardiac cath Discontinued IV line Patient discharged to home with self care via private vehicle
== END 2019-08-21 15:03 | disposition home or self-care (01) | DRG 246 ==
LOC: SURG 06:29 → 2 NORTH 12:09 → OBSVTOIN 08-20 17:56
PROVIDERS: ADMIT Internal Medicine Cardiovascular Disease; ATTEND Internal Medicine Cardiovascular Disease
PROC: B24BZZ4 Ultrasonography of Heart with Aorta, Transesophageal (ICD-10-PCS; 2019-08-19)
PROC: 027034Z Dilation of Coronary Artery, One Artery with Drug-eluting Intraluminal Device, Percutaneous Approach (ICD-10-PCS; principal; 2019-08-20)
PROC: 4A023N7 Measurement of Cardiac Sampling and Pressure, Left Heart, Percutaneous Approach (ICD-10-PCS; 2019-08-20)
PROC: B2111ZZ Fluoroscopy of Multiple Coronary Arteries using Low Osmolar Contrast (ICD-10-PCS; 2019-08-20)
PROC: B2181ZZ Fluoroscopy of Left Internal Mammary Bypass Graft using Low Osmolar Contrast (ICD-10-PCS; 2019-08-20)
PROC: B2131ZZ Fluoroscopy of Multiple Coronary Artery Bypass Grafts using Low Osmolar Contrast (ICD-10-PCS; 2019-08-20)
DX: T82.857A Stenosis of other cardiac prosthetic devices, implants and grafts, initial encounter (principal); I50.33 Acute on chronic diastolic (congestive) heart failure; I13.0 Hypertensive heart and chronic kidney disease with heart failure and stage 1 through stage 4 chronic kidney disease, or unspecified chronic kidney disease; I25.10 Atherosclerotic heart disease of native coronary artery without angina pectoris; I08.1 Rheumatic disorders of both mitral and tricuspid valves; I48.0 Paroxysmal atrial fibrillation; R00.1 Bradycardia, unspecified; E78.5 Hyperlipidemia, unspecified; Y83.2 Surgical operation with anastomosis, bypass or graft as the cause of abnormal reaction of the patient, or of later complication, without mention of misadventure at the time of the procedure; E66.01 Morbid (severe) obesity due to excess calories; N18.9 Chronic kidney disease, unspecified; Z95.1 Presence of aortocoronary bypass graft; Z88.5 Allergy status to narcotic agent; Y92.89 Other specified places as the place of occurrence of the external cause
CPT/HCPCS: 36415; 80048; 82962; 85025; 85027; 85347; 85610; 92937; 92960; 93005; 93312; 93325; 93458; 99152; 99153; C1725; C1769; C1874; C1887; C1892; G0378; G0379; J1644; J1815; J2001; J2250; J2704; J3010; J3490; Q9967; C1713